=== PATIENT | male | born 1970 | race Caucasian/White ===

== ENCOUNTER 2020-04-14 07:45 | Inpatient (IN) | payer OTHER, SELFPAY ==
[2020-04-14] VITALS (22 sets, daily range): BP systolic 102–127; BP diastolic 64–93; PULSE 91–187; RESP 13–32; TEMP 35.7–36.4; O2SAT 92–100; BMI 27.6
--- NOTE | 2020-04-14 | ECHO_ITS ---
Patient Info Name: Jan Encarnacion Age: 49 years : 1970 Gender: Male Ht: 74 in Wt: 214 lbs BSA: 2.26 m2 HR: 89 bpm BP: 118 / 90 mmHg Technical Quality: Fair Exam Date: 04/14/2020 1:56 PM Exam Location: [facility] Patient Status: Outpatient Admit Date: 04/14/2020 Staff Ordering Physician: Barrie Cleary DO Cylinder Inspector And Tester: Leticia Kyle RDCS Attending Provider: Jessi Narvaez MD Referring Physician: Evin CARDENAS; Exam Type: CA echo dop color flow w con Study Info Indications I50.9 - Heart failure, unspecified Complete two-dimensional, color flow and Doppler transthoracic echocardiogram is performed with contrast to opacify the left ventricle and to improve the deliniation of the left ventricle endocardial borders. Contrast/Agitated Saline Contrast/Ag. Saline: Definity Amount: 2.00 ml Administered By: Prudencio Dsouza RN Existing IV Access: Yes IV Access Condition: patent with no signs of infiltration Summary 1. Left ventricular chamber dimension is severely enlarged. 2. Left ventricular systolic function is severely reduced, estimated at 15-20%. 3. The left ventricular diastolic function is abnormal. 4. E/e' 11 is mildly elevated. 5. Right ventricular systolic function is reduced based on a TAPSE 0.6 cm.. 6. Left atrial chamber dimension is moderately enlarged. 7. Right atrial chamber dimension is moderately enlarged. 8. There is mild aortic valve sclerosis. 9. There is moderate mitral valve regurgitation. 10. There is mild tricuspid valve regurgitation. 11. No pulmonary hypertension, estimated pulmonary arterial systolic pressure is 32 mmHg. Left Ventricle E/e' 11 is mildly elevated. Left ventricular chamber dimension is severely enlarged. Left ventricular systolic function is severely reduced, estimated at 15-20%. The left ventricular diastolic function is abnormal. Right Ventricle Right ventricular systolic function is reduced based on a TAPSE 0.6 cm.. Right ventricular chamber dimension is not well visualized. Left Atria Left atrial chamber dimension is moderately enlarged. Right Atria Right atrial chamber dimension is moderately enlarged. Aortic Valve The aortic valve is trileaflet. There is mild aortic valve sclerosis. There is no aortic valve stenosis. There is no aortic valve regurgitation. Pulmonic Valve There is no pulmonic regurgitation. Mitral Valve There is no mitral valve stenosis. There is moderate mitral valve regurgitation. Tricuspid Valve There is mild tricuspid valve regurgitation. No pulmonary hypertension, estimated pulmonary arterial systolic pressure is 32 mmHg. Pericardium/Pleural There is no pericardial effusion. Inferior Vena Cava Normal inferior vena cava with >50% collapse upon inspiration consistent with normal right atrial pressure, 5 mmHg. Aorta The aortic root size at the sinus of Valsalva is normal. Left Ventricular Outflow Tract Name Value Normal LVOT 2D LVOT Diameter 2.08 cm LVOT Doppler LVOT Peak Gradient 1 mmHg LVOT Mean Gradien
--- NOTE | ~2020-04-14 | XR_ITS ---
EXAMINATION: XR chest 1V portable EXAM DATE: 04/14/2020 08:31 INDICATION: Dyspnea. TECHNIQUE: Portable AP frontal chest x-ray was obtained. Comparison is made to prior examination from 08/31/2009. FINDINGS: The lungs are clear. There are no pleural effusions. Cardiac silhouette is prominent but magnified on this AP technique. There is no pneumothorax suspected. The bones and soft tissues are unremarkable. BB-like metallic foreign body overlying right hemithorax. IMPRESSION: No acute cardiopulmonary findings. Reviewed, dictated and finalized at location B. NEL CEMENTER
--- NOTE | ~2020-04-14 | CT_ITS ---
EXAMINATION: CTA chest PE protocol DATE: 04/14/2020 10:03 INDICATION: Dyspnea TECHNIQUE: Computed tomography (CT) pulmonary angiogram of the chest was performed with 100 mL Omnipa que-350 intravenous contrast. Additional 3D reconstructions utilizing coronal maximum intensity proje ction (MIP) were performed. Automated exposure control and iterative reconstruction technique were em ployed. The dose-length product was 626.07 mGy-cm. COMPARISON: None FINDINGS: Excellent contrast opacification of the pulmonary arteries. There is mild streak artifact from dense contrast in the superior vena cava and right atrium. Mild scattered respiratory motion artifact does not significantly limit evaluation. No pulmonary embolism. Mild paraseptal predominant emphysema. Sma ll bilateral pleural effusions. Mild groundglass opacities throughout the lungs with smooth septal li ne thickening at the bilateral lung bases consistent with mild pulmonary edema. Borderline heart size . Atherosclerotic coronary artery calcifications. No pericardial effusion. Mild mediastinal and bilat eral hilar lymphadenopathy. Thoracic aorta is normal in caliber. Visualized upper abdomen is unremark able. Small metallic BB along the superomedial margin of the right pectoralis major muscle. Mild tho racic spondylosis. IMPRESSION: 1. No pulmonary embolism. 2. Possible congestive heart failure with borderline heart size, mild pulmonary edema and small bilat eral pleural effusions. 3. Mild paraseptal emphysema. Reviewed, dictated and finalized at location A. SION OPERATOR IMPRESSION: 1. No pulmonary embolism. 2. Possible congestive heart failure with borderline heart size, mild pulmonary edema and small bilateral pleural effusions. 3. Mild paraseptal emphysema.
--- NOTE | 2020-04-14 07:48 | ECG_ITS ---
Measurements Intervals [place] Rate: 117 P: 23 OK: 170 QRS: 42 QRSD: 106 T: 54 QT: 370 QTc: 518 Interpretive Statements SINUS TACHYCARDIA POSSIBLE LEFT ATRIAL ENLARGEMENT BORDERLINE R WAVE PROGRESSION, ANTERIOR LEADS INFERIOR INFARCT, AGE INDETERMINATE BORDERLINE ST-T WAVE ABNORMALITY- HIGH LATERAL LEADS ABNORMAL ECG Electronically Signed On 04-14-2020 8:30:36 NURSERY HELPER by Barrie Cleary D.O.
--- NOTE | 2020-04-14 08:20 | ED.GENADULT ---
HPI - General Adult General Chief complaint: Shortness of Breath/Dyspnea Stated complaint: SOB Time Seen by Provider: 04/14/20 07:57 Source: RN notes reviewed History of Present Illness HPI narrative: Patient presents to emergency room from home for shortness of breath. Patient states has been having intermittent episodes of severe shortness of breath states the episodes last anywhere from a few minutes to a few hours he states that during his episodes he is unable to lay flat and unable to catch his breath he states they have been ongoing for the past 3 months but have been increasing over the past several weeks states that when he does get these episodes he does feel some chest tightness he denies any fevers or chills abdominal pain nausea vomiting or any other symptoms Related Data Home Medications Medication Instructions Recorded Confirmed No Home Medications 04/14/20 04/14/20 Allergies Allergy/AdvReac Type Severity Reaction Status Date / Time No Known Allergies Allergy Mild Verified 04/14/20 07:59 Review of Systems Review of Systems: Narrative: Gen.: Denies fevers or chills Eyes: Denies eye pain or visual change ENT: Denies congestion Respiratory: See HPI CV: Reports chest tightness with shortness of breath GI: Denies abdominal pain nausea, emesis or diarrhea Musculoskeletal: Denies back pain or muscle pain Neuro: Denies numbness, tingling, weakness or focal weakness Skin: Denies rash Except as documented, all other systems reviewed and negative [facility] Past Medical History Medical History (Updated 04/14/20 @ 13:35 by Braxton Stein DO) Hypertension Family History Family History Mother Family history of alcoholism Family history of type 2 diabetes mellitus Family history of sarcoidosis Grandparent Family history of heart disease in male family member before age 55 Diabetes mellitus Social History Social History Smoking packs per day: 0.5 Smoking cigarettes per day: 10.0 Years smoked: 15 Smoking pack-years: 7.50 Smoking status: Current every day smoker Tobacco type: cigarettes Second hand tobacco smoke exposure: Yes Alcohol intake: never Substance use: never Spiritual care concerns: No Exam Narrative: Exam Narrative: APPEARANCE: No acute distress, nontoxic, resting in bed EYES: EOMI HEENT: Normocephalic, atraumatic, OMM RESPIRATORY: No respiratory distress Clear to auscultation bilaterally with no rhonchi wheezing or rales. CARDIOVASCULAR: Regular rate and rhythm without murmurs rubs or gallops. ABDOMINAL: Soft, nontender, nondistended, no rebound or guarding MUSCULOSKELETAl: Moves all extremities. No clubbing, cyanosis or edema. NEURO: Awake and alert. Following commands, speech normal, no focal deficits SKIN:: Warm, dry. No rashes lesions or abrasions PSYCHIATRIC: Normal affect/mood, Course Course Emergency Course: Patient went into SVT while in the emergency department at that time attempted Valsalva maneuver with no change in SVT patient was given adenosine 6 mg followed by 12 mg with no change in SVT patient was given additional 12 mg of adenosine with conversion to normal sinus rhythm Called discussed Dr. Cleary presentation work-up agrees with consult will start patient on metoprolol 25 mg twice daily Patient again went into SVT again and was able to be converted at this time with coughing Discussed with Dr. Narvaez presentation work-up agrees with admission at this time Discussed with patient and family results of workup and diagnosis. Discussed need for admission. Patient and family understand and agree to current treatment plan Patient is very anxious in the room of episodes where he will sit up stating he feels short of breath at that time patient is noted be in sinus rhythm pulse ox is in the upper 90s patient will be given Ativan at this time Vital
[2020-04-14 08:30] LABS: Basophils Percent Auto 0.3 % (0.2-1.2); Eosinophils Absolute Auto 0.1 K/mm3 (0-0.3); Eosinophils Percent Auto 0.6 % (0-4.4); Hematocrit 44.4 % (42.0-52.0); Hemoglobin 14.9 g/dL (14.0-18.0); Immature Granulocyte Absolute 0.03 K/mm3 (0.00-0.031); Immature Granulocyte Percent A 0.2 % (0-0.5); Lymphocytes Absolute Auto 3.66 K/mm3 (0.9-3.2); Lymphocytes Percent Auto 26.4 % (18.3-44.2); Mean Corpuscular HGB Conc 33.6 g/dl (32-36); Mean Corpuscular Hemoglobin 32.3 pg (26-34); Mean Corpuscular Volume 96.3 fl (80-100); Mean Platelet Volume 9.9 fl (7.4-10.4); Monocytes Absolute Auto 1.2 K/mm3 (0.1-0.6); Monocytes Percent Auto 8.6 % (2.6-8.5); Neutrophils Absolute Auto 8.8 K/mm3 (1.3-6.7); Neutrophils Percent Auto 63.9 % (45.5-73.1); Platelet Count Result 295 k/mm3 (150-375); Red Blood Count 4.61 M/mm3 (4.6-6.20); Red Cell Distribution Width 13.7 % (11.5-14.5); White Blood Count 13.8 K/mm3 (4.5-10.0)
[2020-04-14 08:44] LABS: Anion Gap 10 mmol/L (8-16); Blood Urea Nitrogen 20 mg/dL (9-20); Calcium 9.6 mg/dL (8.4-10.2); Carbon Dioxide 27 mmol/L (22-30); Chloride 105 mmol/L (98-107); Estimated CRCL calculation 94 ml/min; Estimated Glomerular Filt Rate > 60; Glucose 115 mg/dL (75-110); Potassium 4.5 mmol/L (3.4-5.0); Sodium 142 mmol/L (137-145)
[2020-04-14 08:49] LABS: Alanine Aminotransferase 31 U/L (4-50); Albumin Level 4.3 g/dL (3.5-5.1); Alkaline Phosphatase 74 U/L (38-126); Aspartate Amino Transferase 36 U/L (17-59); Bilirubin,Total 0.6 mg/dL (0.2-1.3); Lipase 59 U/L (23-300)
--- NOTE | 2020-04-14 09:01 | ECG_ITS ---
Measurements Intervals [place] Rate: 186 P: ID: 0 QRS: 41 QRSD: 105 T: 204 QT: 252 QTc: 444 Interpretive Statements SUPRAVENTRICULAR TACHYCARDIA MINIMAL Q WAVES- INFERIOR LEADS BORDERLINE ST-T WAVE ABNORMALITY- INF/HIGH LAT LEADS BASELINE ARTIFACT- I, II, III, AVR, AVL, AVF, V1-V6 ABNORMAL ECG Electronically Signed On 04-14-2020 9:11:02 STRAIGHT TRUCK DRIVER by Barrie Cleary D.O.
--- NOTE | 2020-04-14 09:01 | PC.NURSE ---
Pt in SVT on monitor, EDP at bedside, gave VORB for adenosine and EKG stat.
[2020-04-14] MEDS: ADENOSINE IV SOLN 6 MG/2 ML VIAL 18 MG (09:03)
[2020-04-14] MEDS: SODIUM CHLORIDE 0.9% IV 1,000 ML 999 ML (09:04)
--- NOTE | 2020-04-14 09:05 | PC.NURSE ---
per EDP at bedside VORB pt given 12 Adenosine at this time
[2020-04-14] MEDS: ADENOSINE IV SOLN 6 MG/2 ML VIAL 12 MG (09:07)
[2020-04-14 09:08] LABS: D Dimer 2.52 ug/mL (<0.48)
--- NOTE | 2020-04-14 09:09 | ECG_ITS ---
Measurements Intervals [place] Rate: 177 P: NM: 0 QRS: 63 QRSD: 102 T: -3 QT: 267 QTc: 459 Interpretive Statements SUPRAVENTRICULAR TACHYCARDIA BORDERLINE R WAVE PROGRESSION, ANTERIOR LEADS BORDERLINE ST-T WAVE ABNORMALITY- INF/HIGH LAT LEADS ABNORMAL ECG Electronically Signed On 04-14-2020 9:15:17 PULMONARY CARE NURSE by Barrie Cleary D.O.
--- NOTE | 2020-04-14 09:09 | PC.NURSE ---
12 Adenosine admin per VORB EDP Dr Stein at bedside at this time
[2020-04-14] MEDS: METOPROLOL TARTRATE 25 MG TABLET PO (09:15)
--- NOTE | 2020-04-14 09:15 | PC.NURSE ---
pt placed on 2 L NC O2
--- NOTE | 2020-04-14 09:20 | PC.NURSE ---
pt HR 183 at this time, EDP aware, pt on tele monitor, pt has taken ordered Metoprolol per EDP
--- NOTE | 2020-04-14 09:24 | PC.NURSE ---
Pt coughed and HR from 181 to 110, EDP made aware.
[2020-04-14 10:53] LABS: NT Pro B Type Natriuretic Pept 5770 PG/ML (5-100)
--- NOTE | 2020-04-14 11:17 | PC.NURSE ---
EDP at bedside to give results and discuss POC. Pt remains at foot of bed. This RN has tried to have pt sit back in stretcher, states I cant, I cant breathe when I sit like that. EDP made aware of pt complaint. Pt remains on 2 L NC O2. Pt on tele monitor. o2 sat 100% at this time.
[2020-04-14] MEDS: ASPIRIN 81 MG CHEWABLE TABLET 324 MG PO (11:25)
[2020-04-14] MEDS: FUROSEMIDE INJ 40 MG/4 ML VIAL 20 MG IV PUSH (11:25)
[2020-04-14] MEDS: LORazepam (*CRX) 0.5 MG TABLET PO (11:26)
[2020-04-14 12:01] LABS: Alveolar/Arterial O2 Gradient 52.6 mmHg; Base Excess ABG -4.1 mEq/l (+/-2.0); Device ROOM AIR; Fractional Inspired Oxygen 21 %; Modified Allen's Test Pass; Oxygen Content ABG 19.3 %vol (16.0-22.0); Oxygen Saturation ABG 92.3 % (95.0-100.0); Oxyhemoglobin 88.5 % THb (90.0-100.0); PO2 ABG 61.2 mmHg (80.0-100.0); PO2 FiO2 Ratio Arterial Blood 2.91 %; Site Drawn RIGHT RADIAL; Total Hemoglobin 15.5 g/dL (12.0-18.0)
--- NOTE | 2020-04-14 12:07 | PC.NURSE ---
This patient, Jan Encarnacion, was admitted to IMU Room 209-01. Patient/family oriented to hospital policies and general routines including ID bracelet, bed and alarms, visiting hours, pain management, procedures, bathroom and other care routines, personal items, smoking policy, room service/diet, and visiting hours. Information on how to activate the Rapid Response Team has been discussed. Patient/Family are encouraged to report perceived risks to care and to ask questions if they do not understand what they are told or what they should do.
[2020-04-14] MEDS: PERFLUTREN LIPID MICROSPHERES 1.5 ML VIAL DILUTED TO 10 ML TOTAL VOLUME IV PUSH (14:25)
--- NOTE | 2020-04-14 15:00 | PM.IMHP ---
H&P: HPI History of Present Illness Date/Time: 04/14/20 15:00 Chief Complaint: Shortness of breath. Narrative: This a 49-year-old male smoker with history of IV drug use, clean for 6 years, who presented to the emergency department earlier today with complaints of shortness of breath. For the past 3 months or so he has noticed progressive shortness of breath and over the past 5 days or so he has been short of breath even with rest. He is also very fatigued and has developed orthopnea over the past several days. Additionally he will notice occasional heaviness in the midsternal region as well, but sees no pattern as to when it occurs. He has a cough on occasion, rarely productive of clear phlegm. In the emergency department he had episodes of paroxysmal SVT, responsive to adenosine in beta-anam. He denies fever, chills, sweats, pleuritic pain, PND, edema, nausea, vomiting, and sweats. No known history of cardiac disease. He has not had exertional chest pain. No recent illnesses. He does not abuse alcohol. Review of Systems Review of Systems: Narrative: Twelve systems were reviewed with pertinent positives and negatives as per HPI. Girlfriend says he snores quite a bit. She has never witnessed apneic episodes. He is frequently tired, but that seems to have started in the last 3 months with shortness breath. Except as documented, all other systems were reviewed and are negative. [facility] Past Medical History Medical History History of intravenous drug use in remission History of staphylococcal infection Hypertension Tobacco use Surgical History Surgical History (Updated 04/14/20 @ 20:45 by Anum Dutta PA-C) History of elbow surgery Right elbow surgery and washout due to staph infection. History of incision and drainage Staph infection of the leg. History of shoulder surgery Right shoulder reduction under anesthesia with pending. Family History Family History Mother Family history of alcoholism Family history of type 2 diabetes mellitus Family history of sarcoidosis Grandparent Family history of heart disease in male family member before age 55 Diabetes mellitus Social History Social History (Updated 04/14/20 @ 20:50 by Anum Dutta PA-C) Social History: Surrogate decision maker: Elen Aris, sister. Code status: Full code. Smoking packs per day: 0.5 Smoking cigarettes per day: 10.0 Years smoked: 15 Smoking pack-years: 7.50 Smoking status: Current every day smoker Tobacco type: cigarettes Second hand tobacco smoke exposure: Yes Alcohol intake: never Substance use: former Substance use type: methamphetamine Other substance usage details: Former IV drug user, has been clean for 6 years. Additional living arrangements comments: The patient lives in [place] with his girlfriend. 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 Spiritual care concerns: No Meds Home Medications and Allergies Home Medications Medication Instructions Recorded Confirmed Type No Home Medications 04/14/20 04/14/20 History Allergies Allergy/AdvReac Type Severity Reaction Status Date / Time No Known Allergies Allergy Mild Verified 04/14/20 07:59 Vital Signs Vital Signs - 24 hr 04/14/20 07:48 04/14/20 08:10 04/14/20 08:30 Temperature 97.6 F Pulse Rate 116 H 117 H Respiratory Rate 18 Blood Pressure 127/93 H Pulse Oximetry 99 98 04/14/20 09:02 04/14/20 09:07 04/14/20 09:12 Temperature Pulse Rate 187 H 185 H 107 H Respiratory Rate 24 H 29 H 13 Blood Pressure 115/86 Pulse Oximetry 98 98 100 04/14/20 09:15 04/14/20 09:19 04/14/20 10:10 Temperature Pulse Rate 107 H 184 H 108 H Respiratory Rate 21 H 17 Blood Pressure 102/89 122/90 Pulse Oximetry 98 97 04/14/20 11:26 04/14/20 12:01 04/14/20 12:15 Temperature Pulse Rate 98 91
[2020-04-14 17:00] LABS: Troponin I 0.069 ng/mL (0.000-0.034)
--- NOTE | 2020-04-14 18:12 | PM.CNCAR ---
Assessment and Plan Assessment and plan (1) Paroxysmal supraventricular tachycardia: Code(s): I47.1 - Supraventricular tachycardia Status: Acute Assessment and Plan: Metoprolol tartate 25 mg PO BID started in ED to prevent recurrence. Decrease Metoprolol tartate 12.5 mg BID due to low normal BP and with new cardiomyopathy. (2) CHF (congestive heart failure): Code(s): I50.9 - Heart failure, unspecified Status: Acute Assessment and Plan: Echo shows EF 15-20%. Could be related to substance abuse such as methamphetamines. Discussed left heart cath with patient and he is agreeable for procedure to r/o ischemic etiology. Will let HCG know about left heart cath in AM. Started Metoprolol. Start Lisinopril 2.5 mg daily. Start Lasix 40 mg IV BID. (3) Hypertension: Code(s): I10 - Essential (primary) hypertension Status: Acute Assessment and Plan: Stable. (4) Tobacco abuse: Code(s): Z72.0 - Tobacco use Status: Acute Assessment and Plan: Counseled regarding smoking cessation. (5) Methamphetamine abuse: Code(s): F15.10 - Other stimulant abuse, uncomplicated Status: Acute Assessment and Plan: Counseled regarding methamphetamine cessation. (6) Elevated troponin: Code(s): R77.8 - Other specified abnormalities of plasma proteins Status: Acute Assessment and Plan: This could be related to systolic dysfunction with PSVT or due to ACS. Check Lipid panel. Trend troponin levels. Continue aspirin EC 81 mg daily. History of Present Illness History of Present Illness Consult date/time: 04/14/20 18:12 Reason for consult: PSVT and CHF. 49 yr old man presented to ED with complaints of shortness of breath and fast HR. He reports this has been going for 3 days intermittently and he can hardly breathe when his HR is fast. In ED it was noted he went into SVT, adenosine was given and eventually it cardioverted with a cough, then PSVT returned and responded to adenosine. Currently he is in sinus rhythm at 98 bpm and he complains of feeling anxious and shortness of breath. Admits to snoring methamphetamines and last use was 2 weeks ago. Admitted to snoring cocaine but last use a few years ago. He smokes 1/2 ppd. No alcohol use. First troponin .069. D-Dimer elevated at 2.5. CT chest shows no pulm embolism, mild pulm edema and small pleural effusions. NTproBNP at 5,770. EKG shows SVT, BRWP, borderline ST-T wave abnormalities. Echo shows EF 15-20%, severe LVE, diastolic dysfunction (E/e' 11), mod MR, RV dysfunction wth TAPSE 0.6 cm, mod biatrial enlargement. Reason For Visit: SVT, CHF Review of Systems Review of Systems: All systems reviewed & are unremarkable except as noted in HPI and below Constitutional: Constitutional: Reports as per HPI, Denies chills and Denies fatigue Cardiovascular: Cardiovascular: Reports as per HPI, Denies chest pain, Reports leg edema and Reports dyspnea Respiratory: Respiratory: Reports as per HPI and Reports dyspnea Gastrointestinal: Gastrointestinal: Reports as per HPI and Denies abdominal pain Genitourinary: Genitourinary: Reports as per HPI and Denies dysuria Musculoskeletal: Musculoskeletal: Reports as per HPI Neurologic: Reports as per HPI, Denies dizziness and Denies syncope [facility] Past Medical History Medical History (Updated 04/14/20 @ 18:23 by Barrie Cleary DO) Hypertension Family History Family History Mother Family history of alcoholism Family history of type 2 diabetes mellitus Family history of sarcoidosis Grandparent Family history of heart disease in male family member before age 55 Diabetes mellitus Social History Social History Smoking packs per day: 0.5 Smoking cigarettes per day: 10.0 Years smoked: 15 Smoking pack-years: 7.50 Smoking status: Current souleymane
[2020-04-14 19:44] LABS: Cholesterol 136 mg/dL (0-200); HDL Direct 24 mg/dL; Triglycerides 99 mg/dL (<150)
[2020-04-14 19:55] LABS: LDL Cholesterol Direct 94 mg/dL
[2020-04-14 20:03] LABS: Troponin I 0.063 ng/mL (0.000-0.034)
[2020-04-14] MEDS: METOPROLOL TARTRATE 12.5 MG TABLET PO (20:33)
[2020-04-14] MEDS: MELATONIN 5 MG TABLET PO (23:46)
[2020-04-15] VITALS (22 sets, daily range): BP systolic 107–143; BP diastolic 69–100; PULSE 71–170; RESP 18–31; TEMP 35.6–36.6; O2SAT 89–100
[2020-04-15 01:11] LABS: Alveolar/Arterial O2 Gradient 205.7 mmHg; Base Excess ABG -1.2 mEq/l (+/-2.0); Fractional Inspired Oxygen 48 %; HCO3 ABG 19.6 mEq/l (22.0-26.0); Oxygen Content ABG 21.5 %vol (16.0-22.0); Oxygen Saturation ABG 98.5 % (95.0-100.0); Oxyhemoglobin 96.9 % THb (90.0-100.0); PCO2 ABG 24.5 mmHg (35.0-45.0); PO2 ABG 108.9 mmHg (80.0-100.0); PO2 FiO2 Ratio Arterial Blood 2.27 %; Total Hemoglobin 15.7 g/dL (12.0-18.0)
[2020-04-15 01:12] LABS: Device HIGH FLOW NASAL CANN; Modified Allen's Test Pass; Site Drawn LEFT RADIAL; pH ABG 7.522 (7.350-7.450)
[2020-04-15] MEDS: FUROSEMIDE INJ 40 MG/4 ML VIAL IV PUSH ×3 (01:31→18:03)
[2020-04-15] MEDS: WATER FOR IRRIGATION, STERILE 1,000 ML BOTTLE 1000 ML (01:31)
--- NOTE | 2020-04-15 03:22 | PC.NURSE ---
Pt originally agreeable to trying CPAP but now states he cannot tolerate. Pt removes mask and shuts off the machine so nurse would not hear the alarm. Pt states he is refusing to be put back on. Pt states he will try nasal canula again but has also been removing prior to CPAP application. Md called and given update.
[2020-04-15 05:28] LABS: Basophils Percent Auto 0.3 % (0.2-1.2); Eosinophils Percent Auto 0.1 % (0-4.4); Hematocrit 45.8 % (42.0-52.0); Hemoglobin 15.1 g/dL (14.0-18.0); Immature Granulocyte Absolute 0.05 K/mm3 (0.00-0.031); Immature Granulocyte Percent A 0.3 % (0-0.5); Lymphocytes Absolute Auto 3.27 K/mm3 (0.9-3.2); Lymphocytes Percent Auto 22.3 % (18.3-44.2); Mean Corpuscular Hemoglobin 31.8 pg (26-34); Mean Corpuscular Volume 96.4 fl (80-100); Mean Platelet Volume 10.2 fl (7.4-10.4); Monocytes Absolute Auto 1.5 K/mm3 (0.1-0.6); Monocytes Percent Auto 10.2 % (2.6-8.5); Neutrophils Absolute Auto 9.8 K/mm3 (1.3-6.7); Neutrophils Percent Auto 66.8 % (45.5-73.1); Platelet Count Result 280 k/mm3 (150-375); Red Blood Count 4.75 M/mm3 (4.6-6.20); Red Cell Distribution Width 13.7 % (11.5-14.5); White Blood Count 14.6 K/mm3 (4.5-10.0)
[2020-04-15 06:10] LABS: Anion Gap 8 mmol/L (8-16); Blood Urea Nitrogen 29 mg/dL (9-20); Carbon Dioxide 27 mmol/L (22-30); Chloride 102 mmol/L (98-107); Estimated CRCL calculation 73 ml/min; Estimated Glomerular Filt Rate 59; Glucose 91 mg/dL (75-110); Sodium 137 mmol/L (137-145)
[2020-04-15 06:54] LABS: Potassium 5.4 mmol/L (3.4-5.0)
--- NOTE | 2020-04-15 07:42 | PM.PNCARD ---
Progress Note: A&P Assessment and Plan (1) Paroxysmal supraventricular tachycardia: Code(s): I47.1 - Supraventricular tachycardia Status: Acute Assessment and Plan: Metoprolol tartate 25 mg PO BID started in ED to prevent recurrence. Decrease Metoprolol tartate 12.5 mg BID due to low normal BP and with new cardiomyopathy. (2) CHF (congestive heart failure): Code(s): I50.9 - Heart failure, unspecified Status: Acute Assessment and Plan: Echo shows EF 15-20%. Could be related to substance abuse such as methamphetamines. Discussed left heart cath with patient and he is agreeable for procedure to r/o ischemic etiology. Notifying HCG know about left heart cath. Keep NPO for cath. Will order Life Vest to prevent sudden cardiac arrest. Started Metoprolol. Started Lisinopril 2.5 mg daily. On Lasix 40 mg IV BID. Instructed not to consume daily bananas as his potassium 5.4. (3) Hypertension: Code(s): I10 - Essential (primary) hypertension Status: Acute Assessment and Plan: Stable. (4) Tobacco abuse: Code(s): Z72.0 - Tobacco use Status: Acute Assessment and Plan: Counseled regarding smoking cessation. (5) Methamphetamine abuse: Code(s): F15.10 - Other stimulant abuse, uncomplicated Status: Acute Assessment and Plan: Counseled regarding methamphetamine cessation. (6) Elevated troponin: Code(s): R77.8 - Other specified abnormalities of plasma proteins Status: Acute Assessment and Plan: This could be related to systolic dysfunction with PSVT or due to ACS. Continue aspirin EC 81 mg daily. If he has CAD, then will start low dose statin. Subjective Date/time seen: 04/15/20 07:42 Denies chest pain. He looks anxious and states he is sob. Reports eating 2 bananas daily. Exam Const: General: cooperative, anxious and ill appearing Resp: Auscultation: clear to auscultation bilaterally, no crackles, no rales, no rhonchi and no wheezes Cardio: Jugular venous distension: no JVD Rate: regular rate Rhythm: regular rhythm Heart sounds: no murmurs Peripheral pulses: dorsalis pedis present GI: GI Palp: No abdominal tenderness and Yes Soft to palpation Neuro: General: oriented to person, oriented to place and oriented to time Extrem: Right lower extremity: edema Left lower extremity: edema Other: Mild edema of both legs Objective Data Vital Signs Vital Signs: Vital Signs - 24 hr 04/14/20 07:48 04/14/20 08:10 04/14/20 08:30 Temperature 97.6 F Pulse Rate 116 H 117 H Respiratory Rate 18 Blood Pressure 127/93 H Pulse Oximetry 99 98 04/14/20 09:02 04/14/20 09:07 04/14/20 09:12 Temperature Pulse Rate 187 H 185 H 107 H Respiratory Rate 24 H 29 H 13 Blood Pressure 115/86 Pulse Oximetry 98 98 100 04/14/20 09:15 04/14/20 09:19 04/14/20 10:10 Temperature Pulse Rate 107 H 184 H 108 H Respiratory Rate 21 H 17 Blood Pressure 102/89 122/90 Pulse Oximetry 98 97 04/14/20 11:26 04/14/20 12:01 04/14/20 12:15 Temperature Pulse Rate 98 91 Respiratory Rate 29 H 26 H Blood Pressure 116/87 118/90 Pulse Oximetry 99 100 100 04/14/20 12:23 04/14/20 13:29 04/14/20 14:00 Temperature 96.2 F L Pulse Rate 93 100 98 Respiratory Rate 32 H Blood Pressure 103/74 Pulse Oximetry 100 04/14/20 16:00 04/14/20 17:41 04/14/20 18:00 Temperature 96.4 F L Pulse Rate 97 96 102 H Respiratory Rate 26 H Blood Pressure 108/71 Pulse Oximetry 100 04/14/20 20:00 04/14/20 20:33 04/14/20 22:00 Temperature 97.0 F L Pulse Rate 102 H 100 100 Respiratory Rate 18 Blood Pressure 122/87 Pulse Oximetry 100 04/14/20 23:58 04/15/20 01:13 04/15/20 02:00 Temperature 97.3 F L Pulse Rate 95 98 101 H Respiratory Rate 20 24 H Blood Pressure 116/64 Pulse Oximetry 92 100 04/15/20 02:20 04/15/20 04:00 04/15/20 06:00 Temperature 98 F Pulse Rate 98 99 96 Respirato
--- NOTE | 2020-04-15 08:45 | PM.CNCAR ---
Assessment and Plan Assessment and plan (1) CHF (congestive heart failure): Code(s): I50.9 - Heart failure, unspecified Status: Acute Assessment and Plan: 49-year-old male with no known prior cardiac history; tobacco abuse, polysubstance abuse including cocaine and methamphetamine. Patient presents to the hospital with worsening shortness of breath for last 2 months. He was found to be in SVT in the ER and received at no seen. Troponins are minimally elevated. Echocardiogram shows severe left ventricular enlargement and severe LV systolic dysfunction with ejection fraction 15-20%. Intervention Cardiology has been consulted for cardiac catheterization to rule out obstructive CAD. After discussing benefits, risks and alternatives, patient is willing to proceed with cardiac catheterization. Continue optimal, tolerable medical treatment for CHF with reduced ejection fraction. Recommend external wearable defibrillator-life vest at discharge. (2) Elevated troponin: Code(s): R77.8 - Other specified abnormalities of plasma proteins Status: Acute Assessment and Plan: In the setting of decompensated CHF (3) Tobacco use: Code(s): Z72.0 - Tobacco use Status: Acute Assessment and Plan: Smoking cessation counseling was done. Patient was also advised to stop substance abuse. He verbalized understanding. History of Present Illness History of Present Illness Consult date/time: INTERVENTIONAL CARDIOLOGY CONSULTATION NOTE 04/15/20 08:45 Date of consult: 04/15/2020 Reason for consult: Cardiac catheterization Requesting physician: Chief complaint: Shortness of breath HPI: 49-year-old male with no known prior cardiac history; current tobacco abuse, history of polysubstance abuse including methamphetamine, cocaine. Patient was admitted to [facility] on 04/14/2020 with complaints of shortness of breath. Patient states that he has been feeling short of breath for couple of months which has gotten progressively worse over last several days. He has dyspnea on minimal exertion and occasionally dyspnea at rest. He also has lower extremity swelling. He denies chest pain. He has occasional dizziness without syncope. Patient denies any prior cardiac history. His history of cocaine and methamphetamine abuse. Apparently, patient was in the SVT in the ER, and received adenosine. EKG on my personal evaluation showed sinus tachycardia, heart rate 117 beats per minute, left atrial enlargement, borderline R-wave progression. Troponins are minimally elevated at 0.069, 0.063. Chest x-ray unremarkable, CT scan of the chest negative for PE. Patient's echocardiogram showed severe left ventricular enlargement, severe LV systolic dysfunction with ejection fraction 15-20%, moderate MR, mild TR. Interventional Cardiology has been consulted for cardiac catheterization. Reason For Visit: SVT, CHF Review of Systems Review of Systems: Narrative: General: Positive for, fatigue Psychological: Positive for anxiety Ophthalmic: negative for loss of vision ENT: Negative for epistaxis, headaches Allergy and immunology: Negative for hives, nasal congestion Hematologic and lymphatic: Negative for overt bleeding problems Endocrine: Negative for hot flashes, palpitations Respiratory: Negative for cough, was for shortness of breath Cardiovascular: Negative for chest pain, positive shortness of breath, dizziness without syncope Gastrointestinal: Negative for abdominal pain, nausea, vomiting, hematochezia Musculoskeletal: Negative for myalgia, joint pains Neurological: Negative for weakness Dermatological: Negative for rash, skin discoloration PMFSH Past Medical History Medical History History of intravenous drug use in remission History of staphylococcal infection Hypertension Tobacco use Surgical History Surgical History History of elbow
--- NOTE | 2020-04-15 08:51 | PC.NURSE ---
Verified morning medications with Dr. Whitaker. BP 143/91 Dr. Whitaker advised to give morning medication of lisinopril, metoprolol, lasix and aspirin. Cardiac cath scheduled for approximately 11:00am today.
[2020-04-15] MEDS: lisinopriL 2.5 MG TABLET PO (08:57)
[2020-04-15] MEDS: ASPIRIN 81 MG ENTERIC TABLET PO (08:57)
[2020-04-15] MEDS: METOPROLOL TARTRATE 12.5 MG TABLET PO (08:57)
--- NOTE | 2020-04-15 09:01 | WPDMODSED ---
Moderate Sedation Note-Pt Data Patient Data Allergies Allergy/AdvReac Type Severity Reaction Status Date / Time No Known Allergies Allergy Mild Verified 04/14/20 07:59 Home Medications Medication Instructions Recorded Confirmed Type No Home Medications 04/14/20 04/14/20 History Current Medications: Active Medications Aspirin (Aspirin 81 Mg Enteric Tablet) [facility] [place] Admin: 04/15/20 08:57 Dose: 81 mg Documented by: Furosemide (Furosemide Inj 40 Mg/4 Ml Vial) 40 mg IV PUSH BID [facility] Last Admin: 04/15/20 08:57 Dose: 40 mg Documented by: Lisinopril (Lisinopril 2.5 Mg Tablet) 2.5 mg [facility] [place] Admin: 04/15/20 08:57 Dose: 2.5 mg Documented by: Melatonin (Melatonin 5 Mg Tablet) 5 mg PO [facility] Last Admin: 04/14/20 23:46 Dose: 5 mg Documented by: Metoprolol Tartrate (Metoprolol Tartrate 12.5 Mg Tablet) 12.5 mg PO Q12HR [facility] Last Admin: 04/15/20 08:57 Dose: 12.5 mg Documented by: Sedation/Anesthesia: No previous sedation/anesthesia problems (including family history). [facility] Past Medical History Medical History History of intravenous drug use in remission History of staphylococcal infection Hypertension Tobacco use Surgical History Surgical History History of elbow surgery Right elbow surgery and washout due to staph infection. History of incision and drainage Staph infection of the leg. History of shoulder surgery Right shoulder reduction under anesthesia with pending. Family History Family History Mother Family history of alcoholism Family history of type 2 diabetes mellitus Family history of sarcoidosis Grandparent Family history of heart disease in male family member before age 55 Diabetes mellitus Social History Social History Social History: Surrogate decision maker: Elen Hurst, sister. Code status: Full code. Smoking packs per day: 0.5 Smoking cigarettes per day: 10.0 Years smoked: 15 Smoking pack-years: 7.50 Smoking status: Current every day smoker Tobacco type: cigarettes Second hand tobacco smoke exposure: Yes Alcohol intake: never Substance use: former Substance use type: methamphetamine Other substance usage details: Former IV drug user, has been clean for 6 years. Additional living arrangements comments: The patient lives in [place] with his girlfriend. 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 Spiritual care concerns: No Mod Sed Physical Exam Physical Exam Pre Procedural Exam: Normal: Airway Hours since solid foods: 10 Hours since liquid intake: 10 Internal Medicine - PN: Obj Da Vital Signs Vital Signs: Vital Signs - 24 hr 04/14/20 09:02 04/14/20 09:07 04/14/20 09:12 Temperature Pulse Rate 187 H 185 H 107 H Respiratory Rate 24 H 29 H 13 Blood Pressure 115/86 Pulse Oximetry 98 98 100 04/14/20 09:15 04/14/20 09:19 04/14/20 10:10 Temperature Pulse Rate 107 H 184 H 108 H Respiratory Rate 21 H 17 Blood Pressure 102/89 122/90 Pulse Oximetry 98 97 04/14/20 11:26 04/14/20 12:01 04/14/20 12:15 Temperature Pulse Rate 98 91 Respiratory Rate 29 H 26 H Blood Pressure 116/87 118/90 Pulse Oximetry 99 100 100 04/14/20 12:23 04/14/20 13:29 04/14/20 14:00 Temperature 35.7 C L Pulse Rate 93 100 98 Respiratory Rate 32 H Blood Pressure 103/74 Pulse Oximetry 100 04/14/20 16:00 04/14/20 17:41 04/14/20 18:00 Temperature 35.8 C L Pulse Rate 97 96 102 H Respiratory Rate 26 H Blood Pressure 108/71 Pulse Oximetry 100 04/14/20 20:00 04/14/20 20:33 04/14/20 22:00 Temperature 36.1 C L Pulse Rate 102 H 100 100 Respiratory Rate 18 Blood Pressure 122/87 Pulse Oximetry 100 04/14/20 23:58 04/15/20 01:13 04/15/20 02:00 Temperature 36.3 C L Puls
--- NOTE | 2020-04-15 14:19 | PM.IMPN ---
Subjective Date/time seen: 04/15/20 14:19 Interval history: 49-year-old male smoker with history of IV drug use, clean for 6 years, who presented to the emergency department earlier today with complaints of shortness of breath. Had episodes of SVT. Pt seen by cardiology going for heart catherisation. Review of Systems Review of Systems: All systems reviewed & are unremarkable except as noted in HPI and below Exam Const: General: cooperative and healthy appearing; No in distress Nutritional Appearance: overweight Orientation/consciousness: oriented to person HENMT: Head: normal to inspection Resp: Effort & Inspection: no respiratory distress Auscultation: no rhonchi and no wheezes Cardio: Rate: regular rate Rhythm: regular rhythm GI: Inspection: normal to inspection GI Palp: No abdominal tenderness, No Guarding due to palpation present (GI) and No Hepatomegaly present Auscultation: normal bowel sounds Neuro: General: oriented to person Objective Data Vital Signs Vital Signs: Vital Signs - 24 hr 04/14/20 16:00 04/14/20 17:41 04/14/20 18:00 Temperature 35.8 C L Pulse Rate 97 96 102 H Respiratory Rate 26 H Blood Pressure 108/71 Pulse Oximetry 100 04/14/20 20:00 04/14/20 20:33 04/14/20 22:00 Temperature 36.1 C L Pulse Rate 102 H 100 100 Respiratory Rate 18 Blood Pressure 122/87 Pulse Oximetry 100 04/14/20 23:58 04/15/20 01:13 04/15/20 02:00 Temperature 36.3 C L Pulse Rate 95 98 101 H Respiratory Rate 20 24 H Blood Pressure 116/64 Pulse Oximetry 92 100 04/15/20 02:20 04/15/20 04:00 04/15/20 06:00 Temperature 36.6 C Pulse Rate 98 99 96 Respiratory Rate 31 H 20 Blood Pressure 121/86 Pulse Oximetry 98 94 04/15/20 08:00 04/15/20 08:32 04/15/20 08:37 Temperature 36.4 C L Pulse Rate 101 H 100 Respiratory Rate 22 H Blood Pressure 143/91 H Pulse Oximetry 98 98 98 04/15/20 08:57 04/15/20 09:04 04/15/20 10:00 Temperature Pulse Rate 100 98 Respiratory Rate Blood Pressure Pulse Oximetry 98 04/15/20 12:00 04/15/20 12:41 Temperature 36.6 C Pulse Rate 95 96 Respiratory Rate 20 Blood Pressure 138/100 H Pulse Oximetry 98 100 Intake/Output Intake/Output: Intake & Output 04/12/20 04/13/20 04/14/20 04/15/20 23:59 23:59 23:59 23:59 Intake Total 1640 Output Total 1100 Balance 1640 -1100 Meds/Results Medications: Active Medications Generic Name Dose Route Start Last Admin Trade Name Duong PRN Reason Stop Dose Admin Aspirin 81 mg 04/15/20 09:00 04/15/20 08:57 Aspirin 81 Mg Enteric Tablet PO 81 mg QAM ESTRELLITA Administration Furosemide 40 mg 04/15/20 09:00 04/15/20 08:57 Furosemide Inj 40 Mg/4 Ml Vial IV PUSH 40 mg BID ESTRELLITA Administration Lisinopril 2.5 mg 04/15/20 09:00 04/15/20 08:57 Lisinopril 2.5 Mg Tablet PO 2.5 mg QAM ESTRELLITA Administration Melatonin 5 mg 04/14/20 21:00 04/14/20 23:46 Melatonin 5 Mg Tablet PO 5 mg HS ESTRELLITA Administration Metoprolol Tartrate 12.5 mg 04/14/20 21:00 04/15/20 08:57 Metoprolol Tartrate 12.5 Mg Tablet PO 12.5 mg Q12HR ESTRELLITA Administration Radiology Results: ITS Impressions Chest X-Ray 04/14/20 08:34 IMPRESSION: No acute cardiopulmonary findings. Chest CTA 04/14/20 10:04 IMPRESSION: 1. No pulmonary embolism. 2. Possible congestive heart failure with borderline heart size, mild pulmonary edema and small bilateral pleural effusions. 3. Mild paraseptal emphysema. Labs Labs: Laboratory Results - last 24 hr 04/14/20 04/14/20 04/14/20 16:14 19:14 19:14 WBC RBC Hgb Hct MCV MCH MCHC RDW Plt Count MPV Immature Gran % (Auto) Neut % (Auto) Lymph % (Auto) [place] % (Auto) Eos % (Auto) Baso % (Auto) Lymph # (Auto) [place] # (Auto) Eos # (Auto) Baso # (Auto) Abs Immat Gran (auto) Absolute Neuts (auto) Absolute Nucleated RBC Nucle
[2020-04-15] MEDS: MELATONIN 5 MG TABLET PO (20:55)
[2020-04-15] MEDS: carvediloL 6.25 MG TABLET PO (21:03)
[2020-04-15] MEDS: ADENOSINE IV SOLN 6 MG/2 ML VIAL 12 MG IV PUSH ×2 (22:32→23:28)
[2020-04-15] MEDS: ADENOSINE IV SOLN 6 MG/2 ML VIAL IV PUSH ×2 (22:32→23:27)
--- NOTE | 2020-04-15 23:26 | ECG_ITS ---
Measurements Intervals [place] Rate: 96 P: 7 IN: 160 QRS: 53 QRSD: 109 T: 70 QT: 405 QTc: 513 Interpretive Statements SINUS RHYTHM POSSIBLE LEFT ATRIAL ENLARGEMENT CONSIDER INFERIOR INFARCT, AGE INDETERMINATE BORDERLINE T WAVE ABNORMALITY- HIGH LATERAL LEADS ABNORMAL ECG Electronically Signed On 04-16-2020 12:10:52 SENIOR INTERNAL AUDITOR by Barrie Cleary D.O.
--- NOTE | 2020-04-15 23:27 | ECG_ITS ---
Measurements Intervals [place] Rate: 94 P: 15 SC: 189 QRS: 52 QRSD: 114 T: 67 QT: 399 QTc: 501 Interpretive Statements SINUS RHYTHM POSSIBLE LEFT ATRIAL ENLARGEMENT CONSIDER INFERIOR INFARCT, AGE INDETERMINATE BORDERLINE T WAVE ABNORMALITY- HIGH LATERAL LEADS BORDERLINE ECG Electronically Signed On 04-16-2020 6:52:27 [employer] by Barrie Cleary D.O.
[2020-04-15] MEDS: SODIUM CHLORIDE 0.9% IV 250 ML 999 ML (23:28)
[2020-04-16] VITALS (31 sets, daily range): BP systolic 94–124; BP diastolic 67–97; PULSE 81–180; RESP 12–25; TEMP 36.2–36.8; O2SAT 94–100
[2020-04-16] MEDS: METOPROLOL TARTRATE 12.5 MG TABLET PO (05:51)
[2020-04-16 07:54] LABS: Anion Gap 5 mmol/L (8-16); Blood Urea Nitrogen 32 mg/dL (9-20); Calcium 8.6 mg/dL (8.4-10.2); Carbon Dioxide 31 mmol/L (22-30); Chloride 102 mmol/L (98-107); Estimated CRCL calculation 79 ml/min; Estimated Glomerular Filt Rate > 60; Glucose 111 mg/dL (75-110); Potassium 4.2 mmol/L (3.4-5.0); Sodium 138 mmol/L (137-145)
--- NOTE | 2020-04-16 08:06 | PM.PNCARD ---
Progress Note: A&P Assessment and Plan (1) Paroxysmal supraventricular tachycardia: Code(s): I47.1 - Supraventricular tachycardia Status: Acute Assessment and Plan: Metoprolol tartate 12.5 mg PO every 6 hours started to prevent recurrence. Changed Metoprolol to Coreg yesterday for better outcomes for patient's with HFrEF, however, he then went into SVT while Metoprolol has kept him from having one for 24 hours. Changed Coreg back to Metoprolol. (2) CHF (congestive heart failure): Code(s): I50.9 - Heart failure, unspecified Status: Acute Assessment and Plan: Echo shows EF 15-20%. Could be related to substance abuse such as methamphetamines. Discussed left heart cath with patient and he is agreeable for procedure to r/o ischemic etiology. Keep NPO for cath and Dr. Whitaker has seen patient. Dr. Melchor will be the one doing LHC. Order Life Vest to prevent sudden cardiac arrest. On Metoprolol and Lisinopril. On Lasix 40 mg IV BID. Instructed not to consume daily bananas as his potassium 5.4. Check BMP and Mag. (3) Hypertension: Code(s): I10 - Essential (primary) hypertension Status: Acute Assessment and Plan: Stable. (4) Tobacco abuse: Code(s): Z72.0 - Tobacco use Status: Acute Assessment and Plan: Counseled regarding smoking cessation. (5) Methamphetamine abuse: Code(s): F15.10 - Other stimulant abuse, uncomplicated Status: Acute Assessment and Plan: Counseled regarding methamphetamine cessation. (6) Elevated troponin: Code(s): R77.8 - Other specified abnormalities of plasma proteins Status: Acute Assessment and Plan: This could be related to systolic dysfunction with PSVT or due to ACS. Continue aspirin EC 81 mg daily. If he has CAD, then will start low dose statin. Subjective Date/time seen: 04/16/20 08:06 Had bouts of SVT last night that finally responded to Adenosine. He is anxious to have LHC done as it was postponed yesterday due to an emergency cath. Denies chest pain or sob today. Exam Const: General: cooperative, anxious and ill appearing Resp: Auscultation: clear to auscultation bilaterally, no crackles, no rales, no rhonchi and no wheezes Cardio: Jugular venous distension: no JVD Rate: regular rate Rhythm: regular rhythm Heart sounds: no murmurs Peripheral pulses: dorsalis pedis present GI: GI Palp: No abdominal tenderness and Yes Soft to palpation Neuro: General: oriented to person, oriented to place and oriented to time Extrem: Right lower extremity: edema Left lower extremity: edema Other: Trace edema of both legs Objective Data Vital Signs Vital Signs: Vital Signs - 24 hr 04/15/20 08:32 04/15/20 08:37 04/15/20 08:57 Temperature 97.5 F L Pulse Rate 100 100 Respiratory Rate 22 H Blood Pressure 143/91 H Pulse Oximetry 98 98 04/15/20 09:04 04/15/20 10:00 04/15/20 12:00 Temperature Pulse Rate 98 95 Respiratory Rate Blood Pressure Pulse Oximetry 98 98 04/15/20 12:41 04/15/20 14:00 04/15/20 16:00 Temperature 97.8 F Pulse Rate 96 73 95 Respiratory Rate 20 Blood Pressure 138/100 H Pulse Oximetry 100 98 04/15/20 17:06 04/15/20 18:00 04/15/20 20:00 Temperature 97.1 F L 97.4 F L Pulse Rate 94 94 99 Respiratory Rate 22 H 18 Blood Pressure 119/82 123/98 H Pulse Oximetry 100 98 04/15/20 21:03 04/15/20 22:00 04/15/20 23:22 Temperature Pulse Rate 99 170 H Respiratory Rate Blood Pressure Pulse Oximetry 100 04/15/20 23:48 04/16/20 00:00 04/16/20 02:00 Temperature 96.0 F L Pulse Rate 71 96 99 Respiratory Rate 18 Blood Pressure 107/69 Pulse Oximetry 96 99 04/16/20 04:00 04/16/20 05:51 04/16/20 06:00 Temperature 97.4 F L Pulse Rate 94 85 180 H Respiratory Rate 18 Blood Pressure 105/74 Pulse Oximetry 97 Intake/Output Intake/Output: Intake & Output 04/13/20 04/14/20 04/15/20
[2020-04-16] MEDS: ASPIRIN 81 MG ENTERIC TABLET PO (08:52)
--- NOTE | 2020-04-16 11:00 | WPDMODSED ---
Moderate Sedation Note-Pt Data Patient Data Diagnosis: Newly diagnosed cardiomyopathy Present Complaint: dyspnea Procedure to be performed/Plan: left heart catheterization Allergies Allergy/AdvReac Type Severity Reaction Status Date / Time No Known Allergies Allergy Mild Verified 04/14/20 07:59 Home Medications Medication Instructions Recorded Confirmed Type No Home Medications 04/14/20 04/14/20 History Current Medications: Active Medications Aspirin (Aspirin 81 Mg Enteric Tablet) 81 mg PO QAM [facility] Last Admin: 04/16/20 08:52 Dose: 81 mg Documented by: Furosemide (Furosemide 40 Mg Tablet) 40 mg PO DAILY [facility] Lisinopril (Lisinopril 5 Mg Tablet) 5 mg PO QAM [facility] Melatonin (Melatonin 5 Mg Tablet) 5 mg PO HS [facility] Last Admin: 04/15/20 20:55 Dose: 5 mg Documented by: Metoprolol Tartrate (Metoprolol Tartrate 12.5 Mg Tablet) 12.5 mg PO Q6HR [facility] Last Admin: 04/16/20 05:51 Dose: 12.5 mg Documented by: Sedation/Anesthesia: No previous sedation/anesthesia problems (including family history). [facility] Past Medical History Medical History History of intravenous drug use in remission History of staphylococcal infection Hypertension Tobacco use Surgical History Surgical History History of elbow surgery Right elbow surgery and washout due to staph infection. History of incision and drainage Staph infection of the leg. History of shoulder surgery Right shoulder reduction under anesthesia with pending. Family History Family History Mother Family history of alcoholism Family history of type 2 diabetes mellitus Family history of sarcoidosis Grandparent Family history of heart disease in male family member before age 55 Diabetes mellitus Social History Social History Social History: Surrogate decision maker: Elen Hurst, sister. Code status: Full code. Smoking packs per day: 0.5 Smoking cigarettes per day: 10.0 Years smoked: 15 Smoking pack-years: 7.50 Smoking status: Current every day smoker Tobacco type: cigarettes Second hand tobacco smoke exposure: Yes Alcohol intake: never Substance use: former Substance use type: methamphetamine Other substance usage details: Former IV drug user, has been clean for 6 years. Additional living arrangements comments: The patient lives in [place] with his girlfriend. 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 Spiritual care concerns: No Mod Sed Physical Exam Physical Exam Pre Procedural Exam: Normal: Lungs, Heart Rate, Heart Rhythm, Neuro Exam and Extremities and Variation: Appearance ( obese male no distress) and Heart Size ( PMI laterally displaced) Hours since solid foods: 12 Hours since liquid intake: 12 Internal Medicine - PN: Obj Da Vital Signs Vital Signs: Vital Signs - 24 hr 04/15/20 12:00 04/15/20 12:41 04/15/20 14:00 Temperature 36.6 C Pulse Rate 95 96 73 Respiratory Rate 20 Blood Pressure 138/100 H Pulse Oximetry 98 100 04/15/20 16:00 04/15/20 17:06 04/15/20 18:00 Temperature 36.2 C L Pulse Rate 95 94 94 Respiratory Rate 22 H Blood Pressure 119/82 Pulse Oximetry 98 100 04/15/20 20:00 04/15/20 21:03 04/15/20 22:00 Temperature 36.3 C L Pulse Rate 99 99 170 H Respiratory Rate 18 Blood Pressure 123/98 H Pulse Oximetry 98 04/15/20 23:22 04/15/20 23:48 04/16/20 00:00 Temperature 35.6 C L Pulse Rate 71 96 Respiratory Rate 18 Blood Pressure 107/69 Pulse Oximetry 100 96 99 04/16/20 02:00 04/16/20 04:00 04/16/20 05:51 Temperature 36.3 C L Pulse Rate 99 94 85 Respiratory Rate 18 Blood Pressure 105/74 Pulse Oximetry 97 04/16/20 06:00 04/16/20 08:00 Temperature 36.6 C Pulse Rate 180 H 89 Respiratory Rate 16 Blood Pressure 106/72 Pulse Oximet
--- NOTE | 2020-04-16 12:22 | ECG_ITS ---
Measurements Intervals [place] Rate: 87 P: 20 NV: 192 QRS: 46 QRSD: 105 T: 79 QT: 419 QTc: 506 Interpretive Statements SINUS RHYTHM POSSIBLE LEFT ATRIAL ENLARGEMENT [place]SDIER INFERIOR INFARCT, AGE INDETERMINATE BORDERLINE T WAVE ABNORMALITY- HIGH LATERAL LEADS ABNORMAL ECG Electronically Signed On 04-16-2020 15:18:29 NATUROPATHIC DOCTOR by Barrie Cleary D.O.
--- NOTE | 2020-04-16 12:26 | WPDCARDPROC ---
Cardiac Cath Procedure Note Date of procedure:: 04/16/20 Performing physician:: Nick Melchor MD Indication:: severe cardiomyopathy with congestive heart failure Brief clinical history:: this is a 49-year-old patient with a previous history of illicit drug abuse. Now presents with symptomatic left ventricular dysfunction. Echocardiogram demonstrates LV dilatation with low ejection fraction. Because of this new diagnosis and a angiogram was has been recommended for today. Procedure Procedure performed:: Left ventriculography coronary angiography PCI (FRANCIE) of the right coronary artery Sedation/Medication given:: Versed 2 mg case start time 11:41 a.m. case end time 12:19 p.m. sedation provided by Lakshmi Manzo RN, trained observer Access site:: right femoral artery Estimated blood loss:: 10-15 cc Procedure note:: patient was brought to the catheterization lab in the postabsorptive state the right femoral triangle was prepared and draped in the usual fashion. Anesthesia was given with 1% lidocaine infiltrated locally. The right femoral artery was then punctured and a 5 [place] vascular sheath was placed. After this left heart catheterization was carried out. A 5 [place] angled pigtail catheter was used to inject left ventriculogram in the HOFF projection and to measure left-sided hemodynamics. Following this standard FL4 catheter was used to inject the left coronary in multiple projections. The right coronary was then injected using a 5 [place] JR4 catheter. After this the cineangiograms were PCI of the right coronary artery was recommended and carried out as detailed below. Prior to RCA intervention the 5 [place] sheath was changed over a guidewire for 6 [place]. He was systemically anticoagulated with Angiomax and received aspirin as well as 600 mg of clopidogrel orally. Following PCI the sheath was sutured into position the patient was taken to holding area for post cath/ PCI recovery. Procedure was uncomplicated and well tolerated. There was no evidence of a groin hematoma upon leaving the seed laboratory assistant. Findings:: Central aortic pressure was 106/76 left ventricle 106/5 end-diastolic 30. No systolic gradient on pullback across the aortic valve. The left ventricle is markedly dilated and globally hypodynamic. The global ejection fraction is visually estimated to be 15-20%. The left main coronary artery is widely patent the left anterior descending is a large caliber artery extending down to around the apex. The LAD as well as its branches are angiographically smooth and normal in appearance. The circumflex is a small to medium caliber artery giving rise to a very proximal OM1 branch and that I would AV groove branch which are angiographically free of disease. Right coronary artery is large in caliber and dominant to the posterior circulation also giving rise to several large posterolateral branches. There is a high-grade stenosis in the mid to distal RCA of 95%. This is a focal high-grade lesion remainder of the vessel appears to be free of significant disease. Intervention: The right coronary artery was intervened upon using a 6 [place] JR4 guiding catheter. A 0.014 BMW guiding wire was placed into the distal RCA across the lesion. The target lesion was then pre-dilated using a 3.5 x 20 mm emerge PTCA balloon. The target lesion was then stented using a 4.0 x 22 mm [employer] drug-eluting stent with a good anatomical result. Following the procedure there was NANI 3 flow in the vessel the vessel was widely patent with no evidence of perforation dissection or distal embolization. Conclusion:: 1. Severe global dilated cardiomyopathy low ejection fraction and high LVEDP. The global process is out of proportion to the coronary artery disease that is identified. 2. Severe single-vessel coronary artery disease with 95% stenosis of the mid to distal RCA. This lesion was successfully treated using the 4.0 x 2
[2020-04-16] MEDS: ACETAMINOPHEN 500 MG TABLET 1000 MG PO (12:57)
--- NOTE | 2020-04-16 16:38 | PM.IMPN ---
Progress Note: A&P Assessment and Plan (1) Paroxysmal supraventricular tachycardia: Code(s): I47.1 - Supraventricular tachycardia Status: Acute Assessment and Plan: On telemetry (2) Elevated troponin: Code(s): R77.8 - Other specified abnormalities of plasma proteins Status: Acute Assessment and Plan: Status heart cath- pt has cardiomyopathy Continue conservative management Recommend external wearable defibrillator-life vest at discharge. (3) Hypertension: Code(s): I10 - Essential (primary) hypertension Status: Chronic Assessment and Plan: Pt is on lisinopril and metoprolol, Bp is 100/74 (4) Tobacco abuse: Code(s): Z72.0 - Tobacco use Status: Acute (5) Methamphetamine abuse: Code(s): F15.10 - Other stimulant abuse, uncomplicated Status: Chronic Assessment and Plan: chronic use (6) CHF (congestive heart failure): Code(s): I50.9 - Heart failure, unspecified Status: Acute Assessment and Plan: Pt is on 10 liters of oxygen pt is on oral lasix, coreg seen by cardiology Subjective Date/time seen: 04/16/20 16:38 Interval history: 49-year-old male smoker with history of IV drug use, clean for 6 years, who presented to the emergency department with complaints of shortness of breath. Had episodes of SVT. Pt had heart cath showing cardiomyopathy. Pt is sleeping presently. Review of Systems Review of Systems: All systems reviewed & are unremarkable except as noted in HPI and below Exam Const: General: cooperative and healthy appearing; No in distress Nutritional Appearance: overweight Orientation/consciousness: oriented to person Resp: Effort & Inspection: no respiratory distress Auscultation: no rhonchi and no wheezes Cardio: Rate: regular rate Rhythm: regular rhythm GI: Inspection: normal to inspection Auscultation: normal bowel sounds Neuro: General: oriented to person Objective Data Vital Signs Vital Signs: Vital Signs - 24 hr 04/15/20 17:06 04/15/20 18:00 04/15/20 20:00 Temperature 36.2 C L 36.3 C L Pulse Rate 94 94 99 Respiratory Rate 22 H 18 Blood Pressure 119/82 123/98 H Pulse Oximetry 100 98 04/15/20 21:03 04/15/20 22:00 04/15/20 23:22 Temperature Pulse Rate 99 170 H Respiratory Rate Blood Pressure Pulse Oximetry 100 04/15/20 23:48 04/16/20 00:00 04/16/20 02:00 Temperature 35.6 C L Pulse Rate 71 96 99 Respiratory Rate 18 Blood Pressure 107/69 Pulse Oximetry 96 99 04/16/20 04:00 04/16/20 05:51 04/16/20 06:00 Temperature 36.3 C L Pulse Rate 94 85 180 H Respiratory Rate 18 Blood Pressure 105/74 Pulse Oximetry 97 04/16/20 08:00 04/16/20 10:00 04/16/20 12:40 Temperature 36.6 C 36.5 C Pulse Rate 89 90 88 Respiratory Rate 16 25 H Blood Pressure 106/72 94/71 L Pulse Oximetry 98 94 04/16/20 12:55 04/16/20 13:10 04/16/20 13:30 Temperature Pulse Rate 90 91 85 Respiratory Rate 18 16 20 Blood Pressure 97/82 L 110/80 96/67 L Pulse Oximetry 98 97 99 04/16/20 14:00 04/16/20 14:15 04/16/20 14:30 Temperature Pulse Rate 85 90 89 Respiratory Rate 14 19 20 Blood Pressure 103/70 100/75 95/77 L Pulse Oximetry 99 100 100 04/16/20 14:40 04/16/20 14:45 04/16/20 14:50 Temperature Pulse Rate 87 87 86 Respiratory Rate 19 16 15 Blood Pressure 96/71 L 99/75 L 100/72 Pulse Oximetry 100 99 100 04/16/20 15:00 04/16/20 15:10 04/16/20 15:15 Temperature Pulse Rate 88 89 88 Respiratory Rate 25 H 14 12 Blood Pressure 109/75 109/75 101/85 Pulse Oximetry 96 99 100 04/16/20 15:30 04/16/20 15:45 04/16/20 16:00 Temperature Pulse Rate 89 87 94 Respiratory Rate 15 16 20 Blood Pressure 108/77 105/69 100/74 Pulse Oximetry 99 97 94 Intake/Output Intake/Output: Intake & Output 04/13/20 04/14/20 04/15/20 04/16/20 23:59 23:59 23:59 23:59 Intake Total 1640 360 910 Output Total 3600 620 Balance 1640
[2020-04-16] MEDS: METOPROLOL TARTRATE 25 MG TABLET PO (21:04)
[2020-04-16] MEDS: FUROSEMIDE 40 MG TABLET PO (21:57)
[2020-04-17] VITALS (19 sets, daily range): BP systolic 109–131; BP diastolic 64–88; PULSE 83–167; RESP 12–20; TEMP 36.4–36.9; O2SAT 91–100
--- NOTE | 2020-04-17 05:11 | ECG_ITS ---
SINUS TACHYCARDIA POSSIBLE LEFT ATRIAL ENLARGEMENT BORDERLINE R WAVE PROGRESSION, ANTERIOR LEADS CONSIDER INFERIOR INFARCT, AGE INDETERMINATE BORDERLINE T WAVE ABNORMALITY- HIGH LATERAL LEADS ABNORMAL ECG Electronically Signed On 04-17-2020 13:18:22 MARKET RISK SPECIALIST by Barrie ESCAMILLA
[2020-04-17] MEDS: lisinopriL 5 MG TABLET PO (08:47)
[2020-04-17] MEDS: METOPROLOL TARTRATE 25 MG TABLET PO (08:47)
[2020-04-17] MEDS: CLOPIDOGREL BISULFATE 75 MG TABLET PO (08:47)
[2020-04-17] MEDS: FUROSEMIDE 40 MG TABLET PO (08:47)
[2020-04-17] MEDS: ASPIRIN 81 MG ENTERIC TABLET PO (08:47)
[2020-04-17] MEDS: ROSUVASTATIN 10 MG TABLET PO (08:47)
--- NOTE | 2020-04-17 10:36 | PM.PNCARD ---
Progress Note: A&P Assessment and Plan (1) Paroxysmal supraventricular tachycardia: Code(s): I47.1 - Supraventricular tachycardia Status: Acute Assessment and Plan: Metoprolol tartate 25 mg PO BID to prevent recurrence. Changed Metoprolol to Coreg yesterday for better outcomes for patient's with HFrEF, however, he then went into SVT while Metoprolol has kept him from having one for 24 hours. Changed Coreg back to Metoprolol. (2) CHF (congestive heart failure): Code(s): I50.9 - Heart failure, unspecified Status: Acute Assessment and Plan: Non-ischemic cardiomyopathy. Echo shows EF 15-20%. Could be related to substance abuse such as methamphetamines. His RCA stenosis is not the cause of his global cardiomyopathy. Ordered Life Vest to prevent sudden cardiac arrest. On Metoprolol and Lisinopril. On Lasix 40 mg PO daily. Instructed not to consume daily bananas as his potassium 5.4. (3) Hypertension: Code(s): I10 - Essential (primary) hypertension Status: Chronic Assessment and Plan: Stable. (4) Tobacco abuse: Code(s): Z72.0 - Tobacco use Status: Acute Assessment and Plan: Counseled regarding smoking cessation. (5) Methamphetamine abuse: Code(s): F15.10 - Other stimulant abuse, uncomplicated Status: Chronic Assessment and Plan: Counseled regarding methamphetamine cessation. (6) Elevated troponin: Code(s): R77.8 - Other specified abnormalities of plasma proteins Status: Acute Assessment and Plan: This could be related to systolic dysfunction with PSVT or due to ACS. Continue aspirin EC 81 mg daily. If he has CAD, then will start low dose statin. (7) CAD (coronary artery disease): Code(s): I25.10 - Atherosclerotic heart disease of koi coronary artery without angina pectoris Status: Acute Assessment and Plan: C with Dr. Melchor on 04/16/20 shows 95% mid-distal RCA stenosis; PCI with FRANCIE to mid-distal RCA with good result. Advised to continue dual antiplatelet agents without interruption. On statin. May d/c home from cardiology standpoint and f/u with me in 1 week. Subjective Date/time seen: 04/17/20 10:36 Denies chest pain or sob. Right groin access site without pain/tenderness/bleeding or bruising. Exam Const: General: cooperative, anxious and ill appearing Resp: Auscultation: clear to auscultation bilaterally, no crackles, no rales, no rhonchi and no wheezes Cardio: Jugular venous distension: no JVD Rate: regular rate Rhythm: regular rhythm Heart sounds: no murmurs Peripheral pulses: dorsalis pedis present GI: GI Palp: No abdominal tenderness and Yes Soft to palpation Neuro: General: oriented to person, oriented to place and oriented to time Extrem: Right lower extremity: edema Left lower extremity: edema Other: Trace edema of both legs Objective Data Vital Signs Vital Signs: Vital Signs - 24 hr 04/16/20 12:40 04/16/20 12:55 04/16/20 13:10 Temperature 97.7 F Pulse Rate 88 90 91 Respiratory Rate 25 H 18 16 Blood Pressure 94/71 L 97/82 L 110/80 Pulse Oximetry 94 98 97 04/16/20 13:30 04/16/20 14:00 04/16/20 14:15 Temperature Pulse Rate 85 85 90 Respiratory Rate 20 14 19 Blood Pressure 96/67 L 103/70 100/75 Pulse Oximetry 99 99 100 04/16/20 14:30 04/16/20 14:40 04/16/20 14:45 Temperature Pulse Rate 89 87 87 Respiratory Rate 20 19 16 Blood Pressure 95/77 L 96/71 L 99/75 L Pulse Oximetry 100 100 99 04/16/20 14:50 04/16/20 15:00 04/16/20 15:10 Temperature Pulse Rate 86 88 89 Respiratory Rate 15 25 H 14 Blood Pressure 100/72 109/75 109/75 Pulse Oximetry 100 96 99 04/16/20 15:15 04/16/20 15:30 04/16/20 15:45 Temperature Pulse Rate 88 89 87 Respiratory Rate 12 15 16 Blood Pressure 101/85 108/77 105/69 Pulse Oximetry 100 99 97 04/16/20 16:00 04/16/20 16:30 04/16/20 18:00 Temperature Pulse Rate 94 104 H Respi
--- NOTE | 2020-04-17 10:53 | ECG_ITS ---
Measurements Intervals [place] Rate: 89 P: 40 NV: 194 QRS: 58 QRSD: 107 T: 67 QT: 400 QTc: 489 Interpretive Statements SINUS RHYTHM CONSIDER INFERIOR INFARCT, AGE INDETERMINATE BORDERLINE T WAVE ABNORMALITY- HIGH LATERAL LEADS ABNORMAL ECG Electronically Signed On 04-17-2020 11:06:09 DEVULCANIZER OPERATOR by Barrie ESCAMILLA
[2020-04-17] MEDS: METOPROLOL TARTRATE INJ 5 MG/5 ML VIAL IV PUSH ×2 (10:57→11:27)
--- NOTE | 2020-04-17 10:57 | PC.NURSE ---
Patients heart rate to 168, had patient do vagalx2 with no success. Dr Cleary called with no answer, called Dr. Cox who gave verbal order of 5mg metoprolol. Blood pressure 109/81, heart rate 168, room air.
--- NOTE | 2020-04-17 11:03 | PC.NURSE ---
Patients heart rate sustaining 160's. Dr Cleary called and gave verbal order 6mg adenosine.
--- NOTE | 2020-04-17 11:08 | ECG_ITS ---
Measurements Intervals [place] Rate: 82 P: 25 RI: 184 QRS: 70 QRSD: 108 T: 54 QT: 395 QTc: 463 Interpretive Statements SINUS RHYTHM POSSIBLE LEFT ATRIAL ENLARGEMENT BORDERLINE R WAVE PROGRESSION, ANTERIOR LEADS CONSIDER INFERIOR INFARCT, AGE INDETERMINATE BASELINE WANDER- V6 ABNORMAL ECG Electronically Signed On 04-17-2020 11:57:08 PRODUCTION PATTERN MAKER by Barrie Cleary D.O.
[2020-04-17] MEDS: ADENOSINE IV SOLN 6 MG/2 ML VIAL IV PUSH (11:20)
--- NOTE | 2020-04-17 11:23 | PC.NURSE ---
1120 6mg adenosine given with no changes in heart rate, at bedside ordered 5mg metoprolol, metoprolol given at 1124 with heart rate at 159 and blood pressure of 106/74.
--- NOTE | 2020-04-17 11:25 | PC.NURSE ---
Heart rate at 80 in sinus rhythm. Patient alert and oriented with heart rate at 84, spo2 at 95, and blood pressure of 106/73.
--- NOTE | 2020-04-17 12:55 | PM.IMPN ---
Progress Note: A&P Assessment and Plan (1) Paroxysmal supraventricular tachycardia: Code(s): I47.1 - Supraventricular tachycardia Status: Acute Assessment and Plan: Sp episode today now in SNR Continue to watch today. (2) Elevated troponin: Code(s): R77.8 - Other specified abnormalities of plasma proteins Status: Acute Assessment and Plan: Status heart cath- pt has cardiomyopathy Continue conservative management Recommend external wearable defibrillator-life vest at discharge. (3) Hypertension: Code(s): I10 - Essential (primary) hypertension Status: Chronic Assessment and Plan: Pt is on lisinopril and metoprolol, Bp is 115/79 (4) Tobacco abuse: Code(s): Z72.0 - Tobacco use Status: Acute (5) Methamphetamine abuse: Code(s): F15.10 - Other stimulant abuse, uncomplicated Status: Chronic Assessment and Plan: chronic use (6) CHF (congestive heart failure): Code(s): I50.9 - Heart failure, unspecified Status: Acute Assessment and Plan: Pt is on oral lasix and coreg, seen by cardiology Subjective Date/time seen: 04/17/20 12:55 Interval history: 49-year-old male smoker with history of IV drug use, clean for 6 years, who presented to the emergency department with complaints of shortness of breath. Had episodes of SVT. Pt had heart cath showing cardiomyopathy. Pt went into SVT today @ 160, had metoprolol, had adenosine had second dose of metoprolol and converted to SNR Review of Systems Review of Systems: All systems reviewed & are unremarkable except as noted in HPI and below Exam Const: General: other (chronically ill appearing ) Nutritional Appearance: overweight Orientation/consciousness: oriented to person HENMT: Head: normal to inspection Resp: Effort & Inspection: no respiratory distress Auscultation: no rhonchi Cardio: Rate: regular rate Rhythm: regular rhythm GI: Inspection: normal to inspection Auscultation: normal bowel sounds Neuro: General: oriented to person Objective Data Vital Signs Vital Signs: Vital Signs - 24 hr 04/16/20 13:10 04/16/20 13:30 04/16/20 14:00 Temperature Pulse Rate 91 85 85 Respiratory Rate 16 20 14 Blood Pressure 110/80 96/67 L 103/70 Pulse Oximetry 97 99 99 04/16/20 14:15 04/16/20 14:30 04/16/20 14:40 Temperature Pulse Rate 90 89 87 Respiratory Rate 19 20 19 Blood Pressure 100/75 95/77 L 96/71 L Pulse Oximetry 100 100 100 04/16/20 14:45 04/16/20 14:50 04/16/20 15:00 Temperature Pulse Rate 87 86 88 Respiratory Rate 16 15 25 H Blood Pressure 99/75 L 100/72 109/75 Pulse Oximetry 99 100 96 04/16/20 15:10 04/16/20 15:15 04/16/20 15:30 Temperature Pulse Rate 89 88 89 Respiratory Rate 14 12 15 Blood Pressure 109/75 101/85 108/77 Pulse Oximetry 99 100 99 04/16/20 15:45 04/16/20 16:00 04/16/20 16:30 Temperature Pulse Rate 87 94 Respiratory Rate 16 20 Blood Pressure 105/69 100/74 Pulse Oximetry 97 96 98 04/16/20 18:00 04/16/20 18:07 04/16/20 20:00 Temperature 36.2 C L 36.8 C Pulse Rate 104 H 87 88 Respiratory Rate 16 18 Blood Pressure 108/74 103/79 Pulse Oximetry 99 96 04/16/20 21:02 04/16/20 21:04 04/16/20 21:15 Temperature 36.4 C Pulse Rate 91 90 Respiratory Rate 18 Blood Pressure 124/97 H Pulse Oximetry 97 97 04/16/20 22:00 04/17/20 00:00 04/17/20 00:04 Temperature 36.4 C L Pulse Rate 87 85 87 Respiratory Rate 18 Blood Pressure 129/86 Pulse Oximetry 98 98 04/17/20 02:00 04/17/20 03:22 04/17/20 04:00 Temperature 36.5 C Pulse Rate 85 96 Respiratory Rate 18 Blood Pressure 124/88 Pulse Oximetry 100 99 04/17/20 05:55 04/17/20 08:00 04/17/20 08:47 Temperature 36.8 C Pulse Rate 94 97 99 Respiratory Rate 12 Blood Pressure 131/88 Pulse Oximetry 94 04/17/20 09:53 04/17/20 10:00 04/17/20 10:56 Temperature Pulse Rate 95 167 H Respirato
--- NOTE | 2020-05-13 08:51 | PM.TDS ---
Transfer Discharge Sum: Prov Provider Date of admission: 05/03/2020 Primary care physician: CLOSING SUPERVISOR PHYSICIAN Admitting clinician: Jessi Narvaez MD Consults: 04/14/20 11:15 Consult to Physician Routine Comment: Consulting Provider: Barrie Cleary Reason for consultation: chest pain Has provider been notified: Yes 04/15/20 Consult to Physician Routine Comment: md is aware of the consult Consulting Provider: Blade Whitaker animal control officer/MD group to consult: HCG for left heart cath Reason for consultation: Systolic heart failure Has provider been notified: Yes 04/16/20 12:22 Cardiac Rehabilitation Referral Routine Intention for Rehab:: Begin after discharge Cardiac Rehab Referral for:: PCI/Stent DS: Admitting Diagnosis Admitting Diagnosis Admitting Diagnosis: Shortness of breath DS: Discharge Diagnosis Discharge Diagnosis (1) Paroxysmal supraventricular tachycardia: Code(s): I47.1 - Supraventricular tachycardia Status: Acute Assessment and Plan: Sp episode today now in SNR Continue to watch today. Pt will need urgent transfer to [facility] with Dr. Sweet (2) Elevated troponin: Code(s): R77.8 - Other specified abnormalities of plasma proteins Status: Acute Assessment and Plan: Status heart cath- pt has cardiomyopathy Continue conservative management Recommend external wearable defibrillator-life vest at discharge. (3) Hypertension: Code(s): I10 - Essential (primary) hypertension Status: Chronic Assessment and Plan: Pt is on lisinopril and metoprolol, Bp is 115/79 (4) Tobacco abuse: Code(s): Z72.0 - Tobacco use Status: Chronic (5) Methamphetamine abuse: Code(s): F15.10 - Other stimulant abuse, uncomplicated Status: Chronic Assessment and Plan: chronic use (6) CHF (congestive heart failure): Code(s): I50.9 - Heart failure, unspecified Status: Acute Assessment and Plan: Pt is on oral lasix and coreg, seen by cardiology Transfer Discharge Sum: Med Medications Active and Home Medications: Home Medications aspirin 81 mg tablet,delayed release 81 mg PO DAILY 05/01/20 [History Confirmed 05/01/20] clopidogrel 75 mg tablet 75 mg PO DAILY 05/01/20 [History Confirmed 05/01/20] furosemide 20 mg tablet 20 mg PO QAM 05/01/20 [History Confirmed 05/01/20] lisinopril 2.5 mg tablet 2.5 mg PO DAILY 05/01/20 [History Confirmed 05/01/20] metoprolol succinate 25 mg tablet,extended release 24 hr 25 mg PO DAILY 05/01/20 [History Confirmed 05/01/20] pravastatin 10 mg tablet 10 mg PO DAILY #30 tablet 05/01/20 [Rx Confirmed 05/01/20] Transfer Discharge Sum: Hosp Hospital Course Hospital course: 49-year-old male smoker with history of IV drug use, clean for 6 years, who presented to the emergency department with complaints of shortness of breath. Had episodes of SVT. Pt had heart cath showing cardiomyopathy. Pt went into SVT today @ 160, had metoprolol, had adenosine had second dose of metoprolol and converted to SNR As per cardiology- pt has a history of CAD, PSVT, systolic heart failure probably due to methamphetamine/cocaine abuse. yani hubbard urgent transfer to [facility] EP with Dr. Sweet. Time Spent with Patient Time attestation: Total time spent providing and/or coordinating transfer services:40 minutes on day of discharge Exam Const: General: other (chronically ill appearing ) Nutritional Appearance: overweight Orientation/consciousness: oriented to person HENMT: Head: normal to inspection Resp: Effort & Inspection: no respiratory distress Auscultation: no rhonchi Cardio: Rate: regular rate Rhythm: regular rhythm GI: Inspection: normal to inspection Auscultation: normal bowel sounds Neuro: General: oriented to person
== END 2020-04-17 19:45 | disposition short-term general hospital (02) | DRG 175 ==
LOC: ANHED 12:04 → ANHIMU 12:27
PROVIDERS: Internal Medicine; Internal Medicine Cardiovascular Disease; Specialist; Admitting Provider Family Medicine; Emergency Provider Emergency Medicine; Visit Provider Family Medicine
PROC: 4A023N7 Measurement of Cardiac Sampling and Pressure, Left Heart, Percutaneous Approach (ICD-10-PCS; CPT 93452; principal; 2020-04-16 10:00)
PROC: 027034Z Dilation of Coronary Artery, One Artery with Drug-eluting Intraluminal Device, Percutaneous Approach (ICD-10-PCS; 2020-04-16 10:00)
DX: I47.1 Supraventricular tachycardia (principal); I42.8 Other cardiomyopathies; I11.0 Hypertensive heart disease with heart failure; I50.21 Acute systolic (congestive) heart failure; F17.210 Nicotine dependence, cigarettes, uncomplicated; F15.10 Other stimulant abuse, uncomplicated; I25.10 Atherosclerotic heart disease of native coronary artery without angina pectoris
CPT/HCPCS: 36415; 36600; 71045; 71275; 80048; 80061; 80076; 82805; 83690; 83735; 83880; 84132; 84443; 84484; 85025; 85380; 93005; 93458; 94002; 94003; 96360; 96361; 96374; 96375; 96376; 99285; A9270; C1725; C1769; C1874; C1887; C1894; C8929; C9600; G0378; G0379; J0153; J0461; J0583; J1644; J1940; J2250; J3010; J7030; J7040; J7050; Q9957; Q9967

== ENCOUNTER 2020-05-03 14:32 | Emergency (ER) | payer OTHER, SELFPAY ==
[2020-05-03] VITALS (14 sets, daily range): BP systolic 72–118; BP diastolic 57–78; PULSE 85–183; RESP 13–22; TEMP 35.7; O2SAT 93–100
--- NOTE | ~2020-05-03 | XR_ITS ---
XR chest 1V portable 05/03/2020 15:06 Indication: Irregular heart rate. History of SVT. Hypertension. Procedure: AP portable chest Comparison: 04/14/2020 Findings: Cardiomegaly with mild interstitial edema. No pleural effusion or pneumothorax. No acute os seous abnormality. Impression: 1: Cardiomegaly with mild interstitial edema. Reviewed, dictated and finalized at location A. HOUSE TECHNICIAN Impression: 1: Cardiomegaly with mild interstitial edema.
--- NOTE | 2020-05-03 14:39 | PC.NURSE ---
pt stated that he has recent stent placed here at [facility]. meds given adenosine [address] james asked for fentanyl decision to shock the pt at 1440, fentanyl 50 given prior to cardioversion cardioverted with 100 joules , HR dropped to 102
[2020-05-03] MEDS: fentaNYL CITRATE INJ (*CRX) 100 MCG/2 ML VIAL (14:44)
--- NOTE | 2020-05-03 14:45 | ECG_ITS ---
Measurements Intervals [place] Rate: 100 P: 30 [place]: 152 QRS: 49 QRSD: 101 T: 64 QT: 385 QTc: 497 Interpretive Statements SINUS TACHYCARDIA POSSIBLE LEFT ATRIAL ENLARGEMENT INCOMPLETE RIGHT BUNDLE BRANCH BLOCK CONSIDER INFERIOR INFARCT, AGE INDETERMINATE BORDERLINE ST-T WAVE ABNORMALITY- HIGH LATERAL LEADS ABNORMAL ECG Electronically Signed On 05-03-2020 15:49:23 SUPERVISOR FUR DRESSING by Barrie Cleary D.O.
--- NOTE | 2020-05-03 14:46 | ECG_ITS ---
Measurements Intervals [place] Rate: 185 P: VT: 0 QRS: 36 QRSD: 97 T: 12 QT: 251 QTc: 441 Interpretive Statements SUPRAVENTRICULAR TACHYCARDIA NONSPECIFIC ST & T-WAVE ABNORMALITY- INF/HIGH LAT LEADS BASELINE WANDER- I, III, V4-V6 ABNORMAL ECG Electronically Signed On 05-04-2020 8:16:55 CDT by Barrie Cleary D.O.
--- NOTE | 2020-05-03 14:48 | ED.ARRPALP ---
HPI - Arrhythmia/Palpitations General Chief Complaint: Arrhythmia/Palpitations Stated Complaint: HEART RACING History of Present Illness HPI narrative: 49 yo w/ h/o SVT brought in by EMS for the same. Racing heart rate for the past hour. Feels like SVT. Increasingly weak and diaphoretic. EMS unable to obtain BP or IV access. History limited by acuity of condition Related Data Home Medications Medication Instructions Recorded Confirmed aspirin 81 mg tablet,delayed 81 mg PO DAILY 05/01/20 05/01/20 release clopidogrel 75 mg tablet 75 mg PO DAILY 05/01/20 05/01/20 furosemide 20 mg tablet 20 mg PO QAM 05/01/20 05/01/20 lisinopril 2.5 mg tablet 2.5 mg PO DAILY 05/01/20 05/01/20 metoprolol succinate 25 mg 25 mg PO DAILY 05/01/20 05/01/20 tablet,extended release 24 hr Allergies Allergy/AdvReac Type Severity Reaction Status Date / Time No Known Allergies Allergy Mild Verified 05/01/20 10:01 Review of Systems Review of Systems: ROS unobtainable: Yes unobtainable due to medical condition [facility] Past Medical History Medical History History of intravenous drug use in remission History of staphylococcal infection Hypertension Tobacco use Surgical History Surgical History History of elbow surgery Right elbow surgery and washout due to staph infection. History of incision and drainage Staph infection of the leg. History of shoulder surgery Right shoulder reduction under anesthesia with pending. Family History Family History Mother Family history of alcoholism Family history of type 2 diabetes mellitus Family history of sarcoidosis Grandparent Family history of heart disease in male family member before age 55 Diabetes mellitus Social History Social History Social History: Surrogate decision maker: Elen Hurst, sister. Code status: Full code. Smoking packs per day: 0.5 Smoking cigarettes per day: 10.0 Years smoked: 15 Smoking pack-years: 7.50 Smoking status: Current every day smoker Tobacco type: cigarettes Second hand tobacco smoke exposure: Yes Alcohol intake: never Substance use: former Substance use type: methamphetamine Other substance usage details: Former IV drug user, has been clean for 6 years. Additional living arrangements comments: The patient lives in [place] with his girlfriend. 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 Gender identity (if verbalized by the patient): Male Spiritual care concerns: No Exam Const: General: ill appearing Other: Moderate distress HENMT: Face and sinus: dry mucous membranes Eyes: Pupils: Equal, round and reactive pupils present Resp: Effort & Inspection: tachypneic Auscultation: clear to auscultation bilaterally Cardio: Rate: tachycardic Other: No palpable peripheral pulses GI: Inspection: non-distended Skin: General skin exam: normal color Neuro: General: patient oriented x3 and moves all extremities Speech: normal speech Extrem: General: normal to inspection Course Course Emergency Course: Case discussed with Dr. Cleary. He recommends transfer to [facility]. The patient needs ablation and would not benefit from admission here. Vital Signs Vital signs: Vital Signs Temperature 35.7 C L 05/03/20 14:31 Pulse Rate 183 H 05/03/20 14:31 Respiratory Rate 22 H 05/03/20 14:31 Blood Pressure 72/57 L 05/03/20 14:31 Pulse Oximetry 96 05/03/20 14:31 Temperature 35.7 C L 05/03/20 14:31 Pulse Rate 88 05/03/20 17:34 Respiratory Rate 20 05/03/20 17:34 Blood Pressure 110/78 05/03/20 17:34 Pulse Oximetry 96 05/03/20 17:34 MDM - Arrhythmia/Palpitations MDM Narrative Medical decision making narrative: Unstable SVT. Attempted adenosine without response. Synchronized electronic cardioversion
[2020-05-03 14:59] LABS: Basophils Absolute Auto 0.1 K/mm3 (0.0-0.1); Basophils Percent Auto 0.4 % (0.2-1.2); Eosinophils Absolute Auto 0.1 K/mm3 (0-0.3); Eosinophils Percent Auto 0.6 % (0-4.4); Hemoglobin 18.2 g/dL (14.0-18.0); Immature Granulocyte Absolute 0.02 K/mm3 (0.00-0.031); Immature Granulocyte Percent A 0.2 % (0-0.5); Immature Platelet Fraction Pct 2.2 % (0.9-11.2); Lymphocytes Absolute Auto 3.92 K/mm3 (0.9-3.2); Lymphocytes Percent Auto 34.7 % (18.3-44.2); Mean Corpuscular HGB Conc 33.1 g/dl (32-36); Mean Corpuscular Hemoglobin 31.8 pg (26-34); Mean Corpuscular Volume 96.2 fl (80-100); Mean Platelet Volume 9.5 fl (7.4-10.4); Monocytes Percent Auto 8.7 % (2.6-8.5); Neutrophils Absolute Auto 6.3 K/mm3 (1.3-6.7); Neutrophils Percent Auto 55.4 % (45.5-73.1); Platelet Count Result 358 k/mm3 (150-375); Red Blood Count 5.72 M/mm3 (4.6-6.20); Red Cell Distribution Width 13.2 % (11.5-14.5); White Blood Count 11.3 K/mm3 (4.5-10.0)
[2020-05-03 15:10] LABS: Platelet Estimate Adequate (Adequate)
[2020-05-03 15:19] LABS: Alanine Aminotransferase 47 U/L (4-50); Albumin Level 4.8 g/dL (3.5-5.1); Alkaline Phosphatase 89 U/L (38-126); Anion Gap 11 mmol/L (8-16); Aspartate Amino Transferase 59 U/L (17-59); Bilirubin,Total 1.3 mg/dL (0.2-1.3); Blood Urea Nitrogen 20 mg/dL (9-20); Calcium 9.8 mg/dL (8.4-10.2); Carbon Dioxide 25 mmol/L (22-30); Chloride 104 mmol/L (98-107); Estimated CRCL calculation 69 ml/min; Estimated Glomerular Filt Rate 54; Glucose 131 mg/dL (75-110); Potassium 5.7 mmol/L (3.4-5.0); Sodium 140 mmol/L (137-145)
[2020-05-03 15:30] LABS: Troponin I 0.038 ng/mL (0.000-0.034)
--- NOTE | 2020-05-03 15:35 | PC.NURSE ---
p heart rate 140s. Dr Ferguson at bedside. Pt denies chest pain or sob. VRBO Amiodarone 150 mg IVPB.
[2020-05-03 15:47] LABS: Prothrombin Time 13.8 Seconds (11.1-14.7)
[2020-05-03] MEDS: AMIODARONE 360 MG/D5W 200 ML 360 MG/200 ML BAG 33.33 MG IV CONT (16:24)
[2020-05-03] MEDS: AMIODARONE 150 MG/D5W 100 ML 150 MG/100 ML BAG 600 MG IV CONT (16:24)
--- NOTE | 2020-05-03 18:06 | PC.NURSE ---
CALL RECEIVED FROM DAVID TABARES [facility]. TRIAGE INFORMATION GIVEN. STATES WILL CALL WHEN PT RECEIVES A BED.
[2020-05-03 18:35] LABS: Troponin I 0.247 ng/mL (0.000-0.034)
--- NOTE | 2020-05-03 18:43 | PC.NURSE ---
PT HAS BEEN ACCEPTED AT [facility] PER DR SOLIZ. PT HAS BEEN ASSIGNED TO ROOM [id number]. REPORT TO BE CALLED TO [phone]
--- NOTE | 2020-05-03 18:49 | PC.NURSE ---
[facility] accepted transfer to [facility] 20min Trip#[id number]
--- NOTE | 2020-05-03 19:23 | PC.NURSE ---
PT RESTING ON STRETCHER WITH NO S.S OF DISTRESS. DENIES CHEST PAIN OR SOB. ARMORED CABLE MACHINE OPERATOR IN PLACE. REPORT IGVEN TO EMS. TRANSFER PACKET GIVEN TO EMS
== END 2020-05-03 19:30 | disposition short-term general hospital (02) ==
PROVIDERS: Emergency Provider Emergency Medicine
DX: I47.1 Supraventricular tachycardia (principal); I10 Essential (primary) hypertension; F17.210 Nicotine dependence, cigarettes, uncomplicated; I45.10 Unspecified right bundle-branch block; R94.31 Abnormal electrocardiogram [ECG] [EKG]
CPT/HCPCS: 36415; 71045; 80053; 83735; 84484; 85025; 85055; 85610; 85730; 93005; 96365; 96375; 99285; J0153; J0282; J2704; J3010; J7030; J7120

== ENCOUNTER 2020-07-10 04:18 | Observation (INO) | payer OTHER, SELFPAY ==
[2020-07-10] VITALS (13 sets, daily range): BP systolic 121–148; BP diastolic 82–106; PULSE 99–110; RESP 20–27; TEMP 35.8–36.9; O2SAT 92–97; BMI 29.0
--- NOTE | 2020-07-10 | ECHO_ITS ---
Patient Info Name: Jan Encarnacion Age: 50 years : 1970 Gender: Male Ht: 73 in Wt: 220 lbs BSA: 2.29 m2 HR: 98 bpm BP: 148 / 94 mmHg Technical Quality: Fair Exam Date: 07/10/2020 1:16 PM Exam Location: [facility] Pulmonary Exam Room: ICU 7 Patient Status: Inpatient Admit Date: 07/10/2020 Staff Ordering Physician: Barrie Cleary DO Veneer Measurer: Lucinda Carvalho RDCS Attending Provider: Timbo Dent MD Referring Physician: Evin CARDENAS; Exam Type: CA echo dop color flow w con Study Info Indications - S/P CATH SOB CHF Complete two-dimensional, color flow and Doppler transthoracic echocardiogram is performed with contrast to opacify the left ventricle and to improve the deliniation of the left ventricle endocardial borders. Summary 1. Left ventricular chamber dimension is severely enlarged. 2. Definity contrast administered improved wall motion interpretation. 3. Left ventricular systolic function is severely reduced, estimated at 20-25%. 4. The left ventricular diastolic function is abnormal. 5. E/e' 11 is mildly elevated. 6. Right ventricular systolic function is moderately reduced with abnormal TAPSE 1.4 cm. 7. Left atrial chamber dimension is moderately enlarged. 8. Right atrial chamber dimension is mildly enlarged. 9. The mitral valve has mildly thickened leaflets. 10. There is mild to moderate mitral valve regurgitation. 11. There is mild tricuspid valve regurgitation. 12. No pulmonary hypertension, estimated pulmonary arterial systolic pressure is 38 mmHg. 13. There is trace pulmonic regurgitation. 14. Normal inferior vena cava with <50% collapse upon inspiration consistent with elevated right atrial pressure, 10 mmHg. Left Ventricle E/e' 11 is mildly elevated. Definity contrast administered improved wall motion interpretation. Left ventricular chamber dimension is severely enlarged. Left ventricular systolic function is severely reduced, estimated at 20-25%. The left ventricular diastolic function is abnormal. Right Ventricle Right ventricular systolic function is moderately reduced with abnormal TAPSE 1.4 cm. Right ventricular chamber dimension is normal. Left Atria Left atrial chamber dimension is moderately enlarged. Right Atria Right atrial chamber dimension is mildly enlarged. Aortic Valve The aortic valve is trileaflet. There is no aortic valve stenosis. There is no aortic valve regurgitation. Pulmonic Valve There is trace pulmonic regurgitation. Mitral Valve The mitral valve has mildly thickened leaflets. There is no mitral valve stenosis. There is mild to moderate mitral valve regurgitation. Tricuspid Valve There is mild tricuspid valve regurgitation. No pulmonary hypertension, estimated pulmonary arterial systolic pressure is 38 mmHg. Pericardium/Pleural There is no pericardial effusion. Inferior Vena Cava Normal inferior vena cava with <50% collapse upon inspiration consistent with elevated right atrial pressure, 10 mmHg. Aorta The aortic root size at the sinus of Valsalva is normal. Left Ventricular Outflow Tract Name Value Normal LVOT 2D LVOT Diameter 2.07 cm LVOT Doppler
--- NOTE | ~2020-07-10 | CT_ITS ---
EXAMINATION: CTA chest PE protocol DATE: 07/10/2020 05:50 INDICATION: Shortness of breath. TECHNIQUE: Computed tomography angiography (CTA) of the chest was performed with 100 mL Omnipaque-350 intravenous contrast timed to evaluate the pulmonary arteries. Coronal maximum intensity projection 3D-reconstructions were created by the technologist. Automated exposure control and iterative reconst ruction technique were employed. The dose-length product was 554.20 mGy-cm. COMPARISON: Chest CT 04/14/2020 FINDINGS: There is mild emphysema. There is smooth septal thickening in the lungs, consistent with mi ld pulmonary edema. There is mild dependent atelectasis bilaterally. There is a trace left pleural ef fusion. Cardiomegaly is noted. There are coronary artery calcifications. No pericardial effusion. The re is no pulmonary embolus. Again seen is mild mediastinal and bilateral hilar lymphadenopathy. Again seen is a 5 mm radiopaque foreign body superficial to the head of the right clavicle. There is mild thoracic spondylosis. IMPRESSION: 1. No pulmonary embolus. 2. Mild pulmonary edema. 3. Mild emphysema. 4. Cardiomegaly. 5. Mild mediastinal and bilateral hilar lymphadenopathy, which may be reactive. Reviewed, dictated and finalized at location A.
--- NOTE | 2020-07-10 04:30 | ECG_ITS ---
Measurements Intervals [place] Rate: 105 P: 151 [place]: 168 QRS: 157 QRSD: 107 T: 150 QT: 431 QTc: 571 Interpretive Statements SINUS TACHYCARDIA ARM LEADS REVERSED BORDERLINE ST-T WAVE ABNORMALITY- ANTEROLAT/INF LEADS BORDERLINE ECG Electronically Signed On 07-10-2020 6:32:56 CDT by Barrie Cleary D.O.
--- NOTE | 2020-07-10 04:57 | ED.SOB ---
HPI - SOB/Dyspnea General Chief Complaint: Shortness of Breath/Dyspnea Stated Complaint: shortness of breath Time Seen by Provider: 07/10/20 04:28 Source: patient Mode of arrival: ambulatory Limitations: no limitations History of Present Illness HPI Narrative: Patient is a 50-year-old male complaining of shortness of breath, worse with exertion accompanied by fatigue and weakness x3 to 4 days. Patient states that he has been off of all his medication for the past week, has not had time to fill them. Patient states that he recently had a cardiac cath done last month here at this hospital by Dr. Cleary. Patient denies any chest pain, abdominal pain, nausea, vomiting, diaphoresis, fever or chills. Related Data Home Medications Medication Instructions Recorded Confirmed aspirin 81 mg tablet,delayed 81 mg PO DAILY 05/01/20 05/01/20 release clopidogrel 75 mg tablet 75 mg PO DAILY 05/01/20 05/01/20 furosemide 20 mg tablet 20 mg PO QAM 05/01/20 05/01/20 lisinopril 2.5 mg tablet 2.5 mg PO DAILY 05/01/20 05/01/20 metoprolol succinate 25 mg 25 mg PO DAILY 05/01/20 05/01/20 tablet,extended release 24 hr Allergies Allergy/AdvReac Type Severity Reaction Status Date / Time No Known Allergies Allergy Mild Verified 07/10/20 04:27 Review of Systems Review of Systems: All systems reviewed & are unremarkable except as noted in HPI and below Constitutional: Constitutional: Denies body ache(s), Denies chills, Denies excessive sweating, Denies fever(s), Denies headache(s), Denies lethargy, Denies malaise and Denies weight loss Eyes: Eyes: Denies blurry vision, Denies change in vision and Denies loss of vision ENT: Denies dizziness, Denies ear discharge, Denies headache(s), Denies lip swelling, Denies epistaxis, Denies nasal congestion, Denies neck pain, Denies throat swelling and Denies tongue swelling Cardiovascular: Cardiovascular: Denies chest pain, Denies chest pain at rest, Denies chest pain with activity, Denies diaphoresis, Denies rapid heart rate, Denies edema, Denies irregular heart rhythm, Denies lightheadedness and Denies palpitations Respiratory: Respiratory: Denies chest congestion, Denies cough and Denies hemoptysis Gastrointestinal: Gastrointestinal: Denies abdominal pain, Denies melena, Denies hematochezia, Denies diarrhea, Denies nausea, Denies vomiting and Denies hematemesis Musculoskeletal: Musculoskeletal: Denies abnormal gait, Denies deformity, Denies joint swelling, Denies limited range of motion, Denies neck pain and Denies numbness Neurologic: Denies Abnormal speech present, Denies abnormal gait, Denies confusion, Denies dizziness, Denies headache(s), Denies focal weakness, Denies loss of vision, Denies numbness, Denies Other visual disturbances, Denies Sensory deficit (Neuro) and Denies weakness Psychiatric: Psychiatric: Denies confusion, Denies depression, Denies auditory hallucinations, Denies homicidal ideation and Denies suicidal ideation Endocrine: Endocrine: Denies cold intolerance, Denies excessive sweating, Denies fatigue, Denies heat intolerance and Denies palpitations Hematologic/Lymphatic: Hematologic/Lymphatic: Denies easy bleeding and Denies easy bruising Allergic/Immunologic: Allergic/Immunologic: Denies lip swelling, Denies throat swelling and Denies tongue swelling PMFSH Past Medical History Medical History History of intravenous drug use in remission History of staphylococcal infection Hypertension Tobacco use Surgical History Surgical History History of elbow surgery Right elbow surgery and washout due to staph infection. History of incision and drainage Staph infection of the leg. History of shoulder surgery Right shoulder reduction under anesthesia with pending. Family History Family History Mother Family history of alcoholism Family history of type 2 diabetes mellitus
[2020-07-10] MEDS: FUROSEMIDE INJ 40 MG/4 ML VIAL IV PUSH ×3 (05:00→16:21)
[2020-07-10 05:01] LABS: Basophils Percent Auto 0.4 % (0.2-1.2); Eosinophils Absolute Auto 0.1 K/mm3 (0-0.3); Eosinophils Percent Auto 0.9 % (0-4.4); Hematocrit 43.1 % (42.0-52.0); Hemoglobin 14.6 g/dL (14.0-18.0); Immature Granulocyte Absolute 0.04 K/mm3 (0.00-0.031); Immature Granulocyte Percent A 0.4 % (0-0.5); Lymphocytes Percent Auto 41.8 % (18.3-44.2); Mean Corpuscular HGB Conc 33.9 g/dl (32-36); Mean Corpuscular Volume 97.3 fl (80-100); Mean Platelet Volume 9.8 fl (7.4-10.4); Monocytes Percent Auto 8.8 % (2.6-8.5); Neutrophils Absolute Auto 5.4 K/mm3 (1.3-6.7); Neutrophils Percent Auto 47.7 % (45.5-73.1); Platelet Count Result 267 k/mm3 (150-375); Red Blood Count 4.43 M/mm3 (4.6-6.20); Red Cell Distribution Width 15.1 % (11.5-14.5); White Blood Count 11.3 K/mm3 (4.5-10.0)
[2020-07-10 05:12] LABS: Partial Thromboplastin Time 27.9 SECONDS (22.3-36.8); Prothrombin Time 13.8 Seconds (11.1-14.7)
[2020-07-10 05:13] LABS: Alveolar/Arterial O2 Gradient 46.9 mmHg; Base Excess ABG -2.4 mEq/l (+/-2.0); Carboxyhemoglobin 0.7 % THb (0-2.0); Fractional Inspired Oxygen 21 %; HCO3 ABG 21.5 mEq/l (22.0-26.0); Methemoglobin ABG 0.3 %THb (0-1.5); Oxygen Content ABG 18.3 %vol (16.0-22.0); Oxyhemoglobin 89.1 % THb (90.0-100.0); PCO2 ABG 34.7 mmHg (35.0-45.0); PO2 ABG 61.3 mmHg (80.0-100.0); PO2 FiO2 Ratio Arterial Blood 2.92 %; Reduced Hemoglobin 9.9 %THb (0-5.0); Total Hemoglobin 14.6 g/dL (12.0-18.0)
[2020-07-10 05:14] LABS: Device ROOM AIR; Modified Allen's Test Pass; Site Drawn LEFT RADIAL
[2020-07-10 05:15] LABS: D Dimer 0.82 ug/mL (<0.48)
[2020-07-10 05:34] LABS: Anion Gap 9 mmol/L (8-16); Blood Urea Nitrogen 22 mg/dL (9-20); Calcium 9.4 mg/dL (8.4-10.2); Carbon Dioxide 22 mmol/L (22-30); Chloride 107 mmol/L (98-107); Estimated CRCL calculation 90 ml/min; Estimated Glomerular Filt Rate > 60; Glucose 120 mg/dL (75-110); NT Pro B Type Natriuretic Pept 5010 pg/mL (5-100); Potassium 4.6 mmol/L (3.4-5.0); Sodium 138 mmol/L (137-145); Troponin I 0.041 ng/mL (0.000-0.034)
--- NOTE | 2020-07-10 05:56 | ECG_ITS ---
Measurements Intervals [place] Rate: 102 P: 34 [place]: 156 QRS: 37 QRSD: 114 T: 79 QT: 442 QTc: 576 Interpretive Statements SINUS TACHYCARDIA POSSIBLE LEFT ATRIAL ENLARGEMENT INFERIOR INFARCT, AGE INDETERMINATE BORDERLINE ST-T WAVE ABNORMALITY- HIGH LATERAL LEADS ABNORMAL ECG Electronically Signed On 07-10-2020 13:51:31 CDT by Barrie Cleary D.O.
[2020-07-10] MEDS: ASPIRIN 81 MG CHEWABLE TABLET 324 MG PO (06:47)
--- NOTE | 2020-07-10 08:31 | PM.IMHP ---
H&P: HPI History of Present Illness Date/Time: 07/10/20 08:31 Chief Complaint: SOB Narrative: 49 yr old Male with history of polysubstance abuse, CAD, PSVT , systolic congestive heart failure, hypertension and tobacco abuse presents to the emergency room with complaint of shortness of breath and lower extremity swelling. he is previously a patient of Dr. Cleary but states that his insurance has changed and this gaming cage worker no longer accepts his insurance. When asked if he has seen or establish with a new gaming cage worker patient denies doing so. I advised him that we will contact gaming cage worker that knows him while he is hospitalized and after discharge he can continue to work with his insurance to follow up with a new physician. Patient is in agreement. Patient reports that his shortness of breath began acutely approximately 3 days ago he has not been able to sleep lying flat his shortness of breath has been worsening with minimal exertion and he has had associated lower extremity swelling. patient admits noncompliance with medical therapy because he has run out of his medication approximately a week ago. When asked if he used any substances patient denies however a UTox is positive and once confirmed this patient does agree that he has been using methamphetamine but much less frequently than previously. He denies any recent history of chest pain palpitations, headache, dizziness, vision changes, generalized weakness, fever, chills, or other complaints remaining 14 point ROS is negative. Review of Systems Review of Systems: All systems reviewed & are unremarkable except as noted in HPI and below PMFSH Past Medical History Medical History History of intravenous drug use in remission History of staphylococcal infection Hypertension Tobacco use Surgical History Surgical History History of elbow surgery Right elbow surgery and washout due to staph infection. History of incision and drainage Staph infection of the leg. History of shoulder surgery Right shoulder reduction under anesthesia with pending. Family History Family History (Updated 07/10/20 @ 09:08 by Nydia Stark RN) Mother Family history of type 2 diabetes mellitus Family history of sarcoidosis Family history of alcoholism Chronic obstructive pulmonary disease Grandparent Family history of heart disease in male family member before age 55 Diabetes mellitus Cerebrovascular accident Congestive heart failure Social History Social History Social History: Surrogate decision maker: Elen Hurst, sister. Code status: Full code. Smoking packs per day: 0.5 Smoking cigarettes per day: 10.0 Years smoked: 20 Smoking pack-years: 10.00 Smoking status: Current every day smoker Tobacco type: cigarettes Smokeless tobacco user: chewing tobacco Second hand tobacco smoke exposure: Yes Alcohol intake: never Substance use: former Substance use type: former substance user, crack/cocaine, heroin, hallucinogens, opiates, club/floral designer salesperson drugs and methamphetamine Other substance usage details: Former IV drug user, has been clean for 6 years. Last use: 2013 Additional living arrangements comments: The patient lives in [place] with his girlfriend. 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 Gender identity (if verbalized by the patient): Male Spiritual care concerns: No Meds Home Medications and Allergies Home Medications Medication Instructions Recorded Confirmed Type aspirin 81 mg PO DAILY 30 Days #30 tablet 07/11/20 07/10/20 Rx carvedilol [Coreg] 6.25 mg PO Q12HR #60 tablet 07/11/20 Rx clopidogrel [Plavix] 75 mg PO DAILY 30 Days #30 tablet 07/11/20 07/10/20 Rx furosemide 40 mg PO DAILY #30 tablet 07/11/20 Rx lisinopril 5 mg PO QAM #30 tablet 07/11/20 Rx pravasta
[2020-07-10 08:48] LABS: Troponin I 0.037 ng/mL (0.000-0.034)
--- NOTE | 2020-07-10 08:48 | ADMGEN ---
This patient, Jan Encarnacion, was admitted to Intensive Care Unit-7. Patient/family oriented to hospital policies and general routines including ID bracelet, bed and alarms, visiting hours, pain management, procedures, bathroom and other care routines, personal items, smoking policy, room service/diet, and visiting hours. Information on how to activate the Rapid Response Team has been discussed. Patient/Family are encouraged to report perceived risks to care and to ask questions if they do not understand what they are told or what they should do.
--- NOTE | 2020-07-10 08:56 | PC.NURSE ---
0851-Called and left a message for Dr. Bar to report a critical troponin level. Will call back in 30 minutes if no response before then.
[2020-07-10] MEDS: ENOXAPARIN 40 MG/0.4 ML SYRINGE SUB-Q (09:14)
[2020-07-10 10:26] LABS: Amphetamine Screen Urine Positive (Negative); Barbiturate Screen Urine Negative (Negative); Benzodiazepines Screen Urine Negative (Negative); Cannabinoid Screen Urine Negative (Negative); Cocaine Screen Urine Negative (Negative); Methadone Screen Urine Negative (Negative); Opiate Screen Urine Negative (Negative); Phencyclidine Screen Urine Negative (Negative)
[2020-07-10] MEDS: MAGNESIUM SULF 1 GM/D5W 100 ML 1 GM/100 ML BAG IVPB (11:08)
--- NOTE | 2020-07-10 12:43 | PM.CNCAR ---
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 Probably exacerbated by not taking his cardiac medications due to running out of them. Acute on chronic systolic heart failure. Agree with Lasix 40 mg IV BID. Advised to stop using methamphetamines. Obtain echo to recheck EF. (2) CAD (coronary artery disease): Code(s): I25.10 - Atherosclerotic heart disease of [place] coronary artery without angina pectoris Status: Acute Assessment and Plan: Continue dual antiplatelets uninterrupted for 1 year since receiving stent. (3) Tobacco use: Code(s): Z72.0 - Tobacco use Status: Acute Assessment and Plan: Counseled regarding smoking cessation. (4) Elevated troponin: Code(s): R77.8 - Other specified abnormalities of plasma proteins Status: Acute Assessment and Plan: Slightly elevated and due to non-cardiac elevation related to non-ICM and acute CHF. (5) Methamphetamine abuse: Code(s): F15.10 - Other stimulant abuse, uncomplicated Status: Chronic (6) Hypertension: Code(s): I10 - Essential (primary) hypertension Status: Chronic Assessment and Plan: Resume cardiac medications including lisinopril 2.5 mg daily. Change Metoprolol to Coreg 3.125 mg BID. (7) Dyslipidemia: Code(s): E78.5 - Hyperlipidemia, unspecified Status: Acute Assessment and Plan: On Pravastatin. History of Present Illness History of Present Illness Consult date/time: 07/10/20 12:43 Reason for consult: CHF. 49 yr old man who is my regular cardiology patient presents to ER for sob for last 3 days. He has a history of CAD, PSVT S/P successful ablation by Dr. Sands at [facility], systolic heart failure probably due to methamphetamine/cocaine abuse. States he ran out of his medications for about 7 days. He tried to schedule a f/u appointment in my office but we do not accept his new medical insurance. [facility] does and he has an appointment set with them. He smokes 1/4-1/3 ppd a day. He uses methamphetamines but states compared to what he used to do, it is very little. Denies chest pain, palpitations, dizziness. In ED he was found to be in CHF with CXR showing mild pulm edema. CT chest shows no pulm embolism. EKG shows sinus tachycardia at 105 bpm, LVH. Troponin slightly elevated at .04 then .037. NTproBNP elevated at 5,010. He was given Lasix 40 mg IV BID and his breathing is improving. Cardiovascular Procedures Materials Coordinator:: 04/16/20 [facility] with Dr. Melchor: RCA with mid-distal 95% stenosis; PCI with FRANCIE to RCA with good result. Echo/MUGA:: 04/14/20 Echo: EF 15-20%, severe LVE, diastolic dysfunction (E/e' 11), RV dysfunction with TAPSE 0.6 cm, mod biatrial enlargement, mod MR, mild TR. Electrophysiology:: 04/16/20 EKG: Sinus rhythm, consider inferior infarct, borderline T wave in high lateral leads. Reason For Visit: acute chf Review of Systems Review of Systems: All systems reviewed & are unremarkable except as noted in HPI and below Constitutional: Constitutional: Reports as per HPI, Denies chills and Denies fever(s) Cardiovascular: Cardiovascular: Reports as per HPI, Denies chest pain, Reports leg edema and Denies lightheadedness Respiratory: Respiratory: Reports as per HPI and Reports dyspnea Gastrointestinal: Gastrointestinal: Reports as per HPI and Denies abdominal pain Genitourinary: Genitourinary: Reports as per HPI and Denies dysuria Musculoskeletal: Musculoskeletal: Reports as per HPI Neurologic: Reports as per HPI, Denies dizziness and Denies syncope [facility] Past Medical History Medical History History of intravenous drug use in remission History of staphylococcal infection
[2020-07-10 13:14] LABS: Troponin I 0.036 ng/mL (0.000-0.034)
[2020-07-10] MEDS: PERFLUTREN LIPID MICROSPHERES 1.5 ML VIAL DILUTED TO 10 ML TOTAL VOLUME IV PUSH (13:40)
[2020-07-10] MEDS: carvediloL 3.125 MG TABLET PO ×2 (13:56→20:48)
[2020-07-10] MEDS: PRAVASTATIN SODIUM 10 MG TABLET PO (13:56)
[2020-07-10] MEDS: lisinopriL 2.5 MG TABLET PO (13:56)
[2020-07-10] MEDS: CLOPIDOGREL BISULFATE 75 MG TABLET PO (13:56)
[2020-07-11] VITALS: BP 122/89; PULSE 89; PULSE 90; RESP 23; TEMP 37.1; O2SAT 93
[2020-07-11 00:08] VITALS: PULSE 92
[2020-07-11] MEDS: carvediloL 3.125 MG TABLET PO (00:08)
[2020-07-11 04:00] VITALS: BP 115/91; PULSE 86; PULSE 94; RESP 23; TEMP 36.9; O2SAT 94
--- NOTE | 2020-07-11 07:50 | PM.PNCARD ---
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 Probably exacerbated by not taking his cardiac medications due to running out of them. Acute on chronic systolic heart failure. Resolved. Advised to stop using methamphetamines. Echo shows EF 20-25%. Discussed life vest to prevent sudden cardiac arrest but he refuses. He wore it before and discontinued it due to it being bothersome to wear. Change Lasix 40 mg IV BID to 40 mg PO BID. If remains stable by this afternoon on PO Lasix, may d/c home from cardiology standpoint. He will need to schedule appointment in [address] [place] [facility] [place] per patient. (2) CAD (coronary artery disease): Code(s): I25.10 - Atherosclerotic heart disease of [place] coronary artery without angina pectoris Status: Acute Assessment and Plan: Continue dual antiplatelets uninterrupted for 1 year since receiving stent. (3) Tobacco use: Code(s): Z72.0 - Tobacco use Status: Acute Assessment and Plan: Counseled regarding smoking cessation. (4) Elevated troponin: Code(s): R77.8 - Other specified abnormalities of plasma proteins Status: Acute Assessment and Plan: Slightly elevated and due to non-cardiac elevation related to non-ICM and acute CHF. (5) Methamphetamine abuse: Code(s): F15.10 - Other stimulant abuse, uncomplicated Status: Chronic (6) Hypertension: Code(s): I10 - Essential (primary) hypertension Status: Chronic Assessment and Plan: Stable. Resumed cardiac medications including increasing lisinopril 5 mg daily, changing beta anam to Coreg 6.25 mg BID. (7) Dyslipidemia: Code(s): E78.5 - Hyperlipidemia, unspecified Status: Acute Assessment and Plan: On Pravastatin. Subjective Date/time seen: 07/11/20 07:50 Denies chest pain or sob. Breathing is better. Edema resolved. Exam Const: General: cooperative, healthy appearing and comfortable Resp: Auscultation: clear to auscultation bilaterally, no crackles, no rales, no rhonchi and no wheezes Cardio: Jugular venous distension: no JVD Rate: regular rate Rhythm: regular rhythm Heart sounds: no murmurs Peripheral pulses: dorsalis pedis present GI: GI Palp: No abdominal tenderness and Yes Soft to palpation Neuro: General: oriented to person, oriented to place and oriented to time Extrem: Right lower extremity: no edema Left lower extremity: no edema Objective Data Vital Signs Vital Signs: Vital Signs - 24 hr 07/10/20 08:20 07/10/20 09:00 07/10/20 09:10 Temperature 97.7 F Pulse Rate 100 99 100 Respiratory Rate 20 27 H Blood Pressure 134/98 H 134/106 H Pulse Oximetry 95 92 07/10/20 10:00 07/10/20 12:00 07/10/20 13:56 Temperature 98.4 F Pulse Rate 103 H 106 H 106 H Respiratory Rate 25 H Blood Pressure 148/94 H Pulse Oximetry 94 07/10/20 16:00 07/10/20 20:00 07/10/20 20:01 Temperature 97.9 F 96.5 F L Pulse Rate 106 H 102 H 100 Respiratory Rate 25 H 25 H Blood Pressure 144/99 H 134/97 H Pulse Oximetry 94 94 07/10/20 20:48 07/11/20 00:00 07/11/20 00:08 Temperature 98.8 F Pulse Rate 105 H 89 92 Respiratory Rate 23 H Blood Pressure 122/89 Pulse Oximetry 93 07/11/20 04:00 Temperature 98.4 F Pulse Rate 86 Respiratory Rate 23 H Blood Pressure 115/91 H Pulse Oximetry 94 Intake/Output Intake/Output: Intake & Output 07/08/20 07/09/20 07/10/20 07/11/20 23:59 23:59 23:59 23:59 Intake Total 820 240 Output Total 2300 2150 Balance -1480 -1910 Meds/Results Medications: Active Medications Generic Name Dose Route Start Last Admin Trade Name Freq PRN Reason Stop
[2020-07-11 08:00] VITALS: BP 116/91; PULSE 91; PULSE 96; RESP 25; TEMP 36.4; O2SAT 94
[2020-07-11 08:36] VITALS: PULSE 97
[2020-07-11] MEDS: CLOPIDOGREL BISULFATE 75 MG TABLET PO (08:36)
[2020-07-11] MEDS: ASPIRIN 81 MG ENTERIC TABLET PO (08:36)
[2020-07-11] MEDS: carvediloL 6.25 MG TABLET PO (08:36)
[2020-07-11] MEDS: ENOXAPARIN 40 MG/0.4 ML SYRINGE SUB-Q (08:36)
[2020-07-11] MEDS: lisinopriL 5 MG TABLET PO (08:37)
[2020-07-11] MEDS: PRAVASTATIN SODIUM 10 MG TABLET PO (08:37)
[2020-07-11] MEDS: FUROSEMIDE 40 MG TABLET PO (11:14)
[2020-07-11 11:26] LABS: Basophils Percent Auto 0.4 % (0.2-1.2); Eosinophils Absolute Auto 0.1 K/mm3 (0-0.3); Eosinophils Percent Auto 1.4 % (0-4.4); Hematocrit 49.6 % (42.0-52.0); Hemoglobin 16.7 g/dL (14.0-18.0); Immature Granulocyte Absolute 0.03 K/mm3 (0.00-0.031); Immature Granulocyte Percent A 0.3 % (0-0.5); Lymphocytes Percent Auto 20.7 % (18.3-44.2); Mean Corpuscular HGB Conc 33.7 g/dl (32-36); Mean Corpuscular Hemoglobin 32.2 pg (26-34); Mean Corpuscular Volume 95.6 fl (80-100); Mean Platelet Volume 9.5 fl (7.4-10.4); Monocytes Absolute Auto 0.8 K/mm3 (0.1-0.6); Monocytes Percent Auto 9.2 % (2.6-8.5); Neutrophils Absolute Auto 6.2 K/mm3 (1.3-6.7); Platelet Count Result 285 k/mm3 (150-375); Red Blood Count 5.19 M/mm3 (4.6-6.20); Red Cell Distribution Width 14.9 % (11.5-14.5); White Blood Count 9.2 K/mm3 (4.5-10.0)
[2020-07-11 11:38] LABS: Anion Gap 5 mmol/L (8-16); Blood Urea Nitrogen 22 mg/dL (9-20); Calcium 9.3 mg/dL (8.4-10.2); Carbon Dioxide 28 mmol/L (22-30); Chloride 103 mmol/L (98-107); Estimated CRCL calculation 100 ml/min; Estimated Glomerular Filt Rate > 60; Glucose 168 mg/dL (75-110); Magnesium 2.2 mg/dL (1.6-2.3); Sodium 136 mmol/L (137-145)
--- NOTE | 2020-07-11 11:48 | PM.DS ---
DS: Admitting Diagnosis Admitting Diagnosis Admitting Diagnosis: (1) Acute CHF: Qualifiers: Heart failure type: unspecified Qualified Code(s): I50.9 - Heart failure, unspecified Code(s): I50.9 - Heart failure, unspecified Status: Acute Assessment and Plan: (2) CAD (coronary artery disease): Code(s): I25.10 - Atherosclerotic heart disease of [place] coronary artery without angina pectoris Status: Acute Assessment and Plan: (3) Tobacco use: Code(s): Z72.0 - Tobacco use Status: Acute Assessment and Plan: (4) Elevated troponin: Code(s): R77.8 - Other specified abnormalities of plasma proteins Status: Acute Assessment and Plan: (5) Hypertension: Code(s): I10 - Essential (primary) hypertension Status: Chronic Assessment and Plan: (6) Methamphetamine abuse: DS: Discharge Diagnosis Discharge Diagnosis (1) Systolic heart failure: Code(s): I50.20 - Unspecified systolic (congestive) heart failure Status: Acute (2) Elevated troponin: Code(s): R77.8 - Other specified abnormalities of plasma proteins Status: Acute (3) Methamphetamine abuse: Code(s): F15.10 - Other stimulant abuse, uncomplicated Status: Chronic (4) Tobacco use: Code(s): Z72.0 - Tobacco use Status: Acute (5) Hypertension: Code(s): I10 - Essential (primary) hypertension Status: Chronic (6) Dyslipidemia: Code(s): E78.5 - Hyperlipidemia, unspecified Status: Acute (7) CAD (coronary artery disease): Code(s): I25.10 - Atherosclerotic heart disease of [place] coronary artery without angina pectoris Status: Acute DS: Summary Hospital Course Reason for hospitalization: Acute exacerbation of CHF Hospital Course: 50-year-old male admitted to the hospital with acute exacerbation of systolic congestive heart failure after noncompliance with medical therapy due to lack of access to medications. 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 He did very well and had a benign clinical course. Patient was counseled to quit smoking and encouraged to quit abusing methamphetamines. he is discharged home in stable condition with indications to follow up with Cardiology in his network immediately after discharge to establish care. Time spent discussing smoking cessation with patient: 3 to 10 minutes Status at Discharge Functional status at discharge: independent ambulation Overall status at discharge: patient is back to baseline Time Spent with Patient Time attestation: Total time spent providing and/or coordinating discharge services: Time spent: Greater than 30 minutes Exam Const: General: comfortable and no acute distress HENMT: General nose exam: Normal nares present Mouth: Yes moist mucous membranes Eyes: General: appearance normal, both eyes and all related structures EOM: EOMs intact bilaterally Neck: Neck: supple Resp: Effort & Inspection: normal respiratory effort Auscultation: clear to auscultation bilaterally Cardio: Rate: regular rate Rhythm: regular rhythm GI: Inspection: non-distended GI Palp: Yes Soft to palpation Auscultation: normal bowel sounds Skin: General skin exam: normal color and no rashes or lesions noted Wounds: no wounds Neuro: General: gait normal Cognition (Neuro): normal cognition Speech: normal speech Motor exam (neuro): 5/5 motor strength present throughout Extrem: General: normal to inspection Psych: Mental Status: mental status grossly normal Affect: Anxious affect present DS: Data Data Completed and Pending Labs on day of discharge: Labs from last 24 hours 07/11/20 07/11/20 07/10/20 11:21 11:21 11:18 WBC 9.2 RBC 5.19 Hgb 16.7 Hct 49.6 MCV 95.6 MCH 32.2 MCHC 33.7 RDW 14.9 H Plt Count 285 MPV 9.5 Immature Gran % (Auto) 0.3 Neut % (Auto) 68.0 Lymph % (Au
== END 2020-07-11 12:26 | disposition home or self-care (01) ==
LOC: ANHED 06:50 → ANHICU 09:38
PROVIDERS: Admitting Provider Internal Medicine; Emergency Provider Emergency Medicine; Visit Provider Hospitalist
DX: I50.43 Acute on chronic combined systolic (congestive) and diastolic (congestive) heart failure (principal); R06.02 Shortness of breath; R53.1 Weakness; I11.0 Hypertensive heart disease with heart failure; F17.210 Nicotine dependence, cigarettes, uncomplicated; R77.8 Other specified abnormalities of plasma proteins; I25.10 Atherosclerotic heart disease of native coronary artery without angina pectoris; R60.9 Edema, unspecified; F17.290 Nicotine dependence, other tobacco product, uncomplicated; F15.10 Other stimulant abuse, uncomplicated; E78.5 Hyperlipidemia, unspecified; Z79.899 Other long term (current) drug therapy
CPT/HCPCS: 36415; 36600; 71275; 80048; 80307; 82375; 82805; 83050; 83735; 83880; 84484; 85025; 85380; 85610; 85730; 93005; 96365; 96366; 96372; 96375; 96376; 99285; A9270; C8929; G0378; G0379; J1650; J1940; J3475; Q9957; Q9967